=== PATIENT | female | born 1965 | race African-American/Black ===

== ENCOUNTER 2017-04-16 10:11 | Outpatient (CLI) | payer OTHER ==
--- NOTE | 2017-04-16 11:43 | RAD ---
TWO VIEWS CHEST: Date: 04-16-17 Comparison: 09-22-09 History: Dyspnea. FINDINGS: Calcified node is noted in the AP window. No pneumothorax, pleural fluid, focal consolidation, or edin eolar edema. Heart and mediastinal contours are stable. There is a focal area of high density in the epigastric region on frontal imaging, which may represent nonspecific calcification and/or high densi ty material within the bowel. IMPRESSION: No acute findings. POS: [facility]
== END 2017-04-16 10:12 | disposition home or self-care (01) ==
LOC: RAD 10:11
PROVIDERS: ATTEND Internal Medicine Pulmonary Disease
DX: R06.00 Dyspnea, unspecified (principal)
CPT/HCPCS: 71020

== ENCOUNTER 2017-04-16 10:37 | Outpatient (CLI) | payer OTHER | END 2017-04-16 10:38 | disposition home or self-care (01) | LOC: DTY/OP 10:37 | PROVIDERS: ATTEND Surgery | DX: E11.9 Type 2 diabetes mellitus without complications (principal); G47.30 Sleep apnea, unspecified; I10 Essential (primary) hypertension | CPT/HCPCS: 71020; 97802 ==

== ENCOUNTER 2017-06-08 19:30 | Outpatient (CLI) | payer OTHER | END 2017-06-08 19:31 | disposition home or self-care (01) | LOC: SLEEPLAB 19:30 | PROVIDERS: ATTEND Internal Medicine Pulmonary Disease | DX: G47.33 Obstructive sleep apnea (adult) (pediatric) (principal); I10 Essential (primary) hypertension | CPT/HCPCS: 95811 ==

== ENCOUNTER 2018-01-24 10:15 | Inpatient (IN) | payer OTHER ==
[2018-02-05] MEDS ORDERED: Heparin 5,000 UNITS/ML VIAL ONE (09:52)
[2018-02-05] MEDS ORDERED: CEFAZOLIN/Water 2 GM/20 ML SYRINGE ONE (09:52)
[2018-02-05] MEDS ORDERED: Fentanyl 100 MCG/2 ML VIAL ONE ×3 (12:24→15:48)
[2018-02-05] MEDS ORDERED: Bupivacaine/Epinephrine 0.25% 30 ML VIAL ONE ×2 (12:33→13:52)
[2018-02-05] MEDS ORDERED: SUGAMMADEX SODIUM 500 MG/5 ML VIAL ONE (14:17)
[2018-02-05] MEDS ORDERED: Ondansetron HCl/PF 4 MG/2 ML Vial IVP PRN ×2 (14:35→16:51)
[2018-02-05] MEDS ORDERED: Meperidine HCl/PF 25 MG/ML VIAL SLOW IVP PRN (14:35)
[2018-02-05] MEDS ORDERED: Promethazine HCl 25 MG/ML VIAL SLOW IVP PRN (14:35)
[2018-02-05] MEDS ORDERED: Promethazine HCl 25 MG/ML VIAL IM PRN ×2 (14:35→16:51)
[2018-02-05] MEDS ORDERED: diphenhydrAMINE 50 MG/ML VIAL IVP PRN ×2 (15:02→16:51)
[2018-02-05] MEDS ORDERED: Naloxone HCl 0.4 mg/ml Vial IV PRN (15:02)
[2018-02-05] MEDS ORDERED: Zolpidem Tartrate 5 MG TAB PO PRN (15:02)
[2018-02-05] MEDS ORDERED: diphenhydrAMINE 25 MG CAP PO PRN (15:02)
[2018-02-05] MEDS ORDERED: diphenhydrAMINE 50 MG/ML VIAL IM PRN (15:02)
[2018-02-05] MEDS ORDERED: Morphine CADD 1 MG/ML CADD IVPB PRN (15:02)
[2018-02-05] MEDS ORDERED: Communication Order-Pharmacy FS SCH (15:15)
[2018-02-05] MEDS ORDERED: Ondansetron HCl/PF 4 MG/2 ML Vial ONE (15:23)
[2018-02-05] MEDS ORDERED: Ketorolac Tromethamine 30 MG/ML VIAL ONE (15:23)
[2018-02-05] MEDS ORDERED: PROPOFOL 200 MG/20 ML VIAL ONE (15:23)
[2018-02-05] MEDS ORDERED: Dexamethasone 20 MG/5 ML VIAL ONE (15:23)
[2018-02-05] MEDS ORDERED: ePHEDrine/0.9% NaCl/PF SYRINGE 50 mg/10 ml ONE (15:23)
[2018-02-05] MEDS ORDERED: Glycopyrrolate 0.2 MG/ML 5 ML SYRINGE ONE (15:23)
[2018-02-05] MEDS ORDERED: Succinylcholine Chloride 20 MG/ML 10 ml SYRINGE FS ONE (15:23)
[2018-02-05] MEDS ORDERED: Lidocaine 1% PF 5 ML VIAL ONE (15:23)
[2018-02-05] MEDS ORDERED: hydrALAZINE 20 MG/ML VIAL SLOW IVP PRN (16:51)
[2018-02-05] MEDS ORDERED: HumaLOG 300 UNITS/3 ML VIAL SC PRN (16:51)
[2018-02-05] MEDS ORDERED: PROVENTIL INHALER 6.7 G (200 INHALATIONS) INH PRN (16:51)
[2018-02-05] MEDS ORDERED: Dextrose 50% Abboject 50 ML SYRINGE SLOW IVP PRN (16:51)
[2018-02-05] MEDS ORDERED: Dextrose 5% in Water 1,000 ML IV PRN (16:51)
[2018-02-05] MEDS: Acetaminophen 1,000 MG in Premix Bag 1 BAG IVPB SCH (17:52)
[2018-02-05] MEDS: Ondansetron HCl/PF 4 MG/2 ML Vial IVP PRN (18:47)
[2018-02-05 18:53] VITALS: BMI 66.2
[2018-02-05] MEDS: Enoxaparin Sodium 40 MG/0.4 ML SYRINGE SC SCH (21:30)
[2018-02-05] MEDS: Promethazine HCl 25 MG/ML VIAL IM PRN (21:31)
[2018-02-05] MEDS: NIFEdipine XL 60 MG TAB PO SCH (21:33)
[2018-02-05] MEDS: D5 1/2 NS w/20 mEq KCL 1,000 ML IV SCH (21:33)
[2018-02-06] MEDS: Acetaminophen 1,000 MG in Premix Bag 1 BAG IVPB SCH ×3 (00:43→11:21)
[2018-02-06] MEDS: D5 1/2 NS w/20 mEq KCL 1,000 ML IV SCH ×3 (00:43→10:32)
[2018-02-06] MEDS: Ondansetron HCl/PF 4 MG/2 ML Vial IVP PRN ×3 (01:30→20:43)
[2018-02-06] MEDS: Promethazine HCl 25 MG/ML VIAL IM PRN (05:51)
[2018-02-06 06:06] LABS: #Lymphocytes 1.2 thou/uL (1.20-3.40); #Monocytes 0.7 thou/uL (0.11-0.59); #Neutrophils 10.7 thou/uL (1.40-6.50); %Eosinophils 0.1 % (0.0-10.0); %Lymphocytes 9.6 % (21.0-51.0); %Monocytes 5.8 % (0.0-10.0); %Neutrophils 84.5 % (42.0-75.0); Hemoglobin 12.4 g/dL (12.0-16.0); Mean Corpuscular HGB CONC 31.3 g/dL (32.0-36.0); Mean Corpuscular Volume 89.4 fL (78.0-98.0); Mean Platelet Volume 7.1 fL (7.4-10.4); Platelet Count 417 thou/uL (130-400); RBC Distribution Width 12.9 % (11.5-14.5); Red Blood Cell (RBC) Count 4.42 mill/uL (4.20-5.40); White Blood Cell (WBC) Count 12.6 thou/uL (4.8-10.8)
[2018-02-06 06:28] LABS: Anion Gap 12 mmol/L (10-20); BUN (Urea Nitrogen) 8 mg/dL (9.8-20.1); Calc. Creatinine Clearance 178 mL/min (70-130); Calcium 9.4 mg/dL (7.8-10.44); Carbon Dioxide 30 mmol/L (22-29); Chloride 99 mmol/L (98-107); Estimated GFR-MDRD 67; Glucose 158 mg/dL (70-105); Potassium 3.7 mmol/L (3.5-5.1); Sodium 137 mmol/L (136-145)
[2018-02-06] MEDS: Pantoprazole 40 MG VIAL IVP SCH (08:12)
--- NOTE | 2018-02-06 14:44 | PRG ---
DATE OF SERVICE: 02/06/2018 Postop day #1, sleeve hiatal hernia repair. Ms. Sotomayor has nausea this morning. She is complainin g of bloating. She has not been ambulatory much. PHYSICAL EXAMINATION: Her abdomen is soft, nontender, nondistended. All incisions are healing well. She is afebrile. Vital signs are stable. ASSESSMENT: Postop day #1 laparoscopic gastric sleeve and hiatal hernia repair. PLAN: Continue clear liquids, keep IV fluids running. She is slow to move. She will probably stay today and go home tomorrow.
[2018-02-06] MEDS: Hydrocodone-Acetamin 15 ML UDCUP PO PRN ×2 (16:22→21:59)
[2018-02-06] MEDS: NIFEdipine XL 60 MG TAB PO SCH ×2 (20:55→22:03)
[2018-02-06] MEDS: Enoxaparin Sodium 40 MG/0.4 ML SYRINGE SC SCH (20:55)
--- NOTE | 2018-02-06 20:55 | OP ---
DATE OF PROCEDURE: 02/05/2018 PREOPERATIVE DIAGNOSES: 1. Morbid obesity with a body mass index of 68. 2. Diabetes mellitus. 3. Hypertension. POSTOPERATIVE DIAGNOSES: 1. Morbid obesity with a body mass index of 68. 2. Diabetes mellitus. 3. Hypertension. 4. Paraesophageal hiatal hernia. PROCEDURES PERFORMED: 1. Laparoscopic sleeve gastrectomy with [place] staple line reinforcements and 38-[place] bougie. 2. Laparoscopic hiatal hernia repair without mesh or fundoplication. 3. EGD. SURGEON: Russ Sullivan M.D. ANESTHESIA: General. ESTIMATED BLOOD LOSS: Minimal. COMPLICATIONS: None. SPECIMEN: None. FINDINGS: Hiatal hernia, moderate size. TECHNIQUE: The patient was taken to the operating room and placed supine on the table. After genera l anesthetic was obtained, the abdomen was prepped and draped in a sterile fashion. Her arms and leg s had been double strapped to bariatric table. Left subcostal 5-mm Optiview trocar was placed in the usual fashion and high-flow pneumoperitoneum was obtained. Left and right abdominal 12 mm ports and right subcostal 5 mm port were placed under direct visualization. A 5 mm incision was made in the x iphoid and Blaire was used to raise the liver off the GE junction. Short gastrics were taken down from mid body of stomach to left chalino of the diaphragm using LigaSure. Left chalino, posterior fundus, angle of His were completely dissected exposing hiatal hernia. The stomach was flipped over and the gastrohepatic ligament was entered to expose the right chalino of the diaphragm. A circumferential dis section of the esophagus was performed. The fundus was brought back down into the abdominal cavity. There was a moderate size hiatal hernia present. Short gastrics were taken down to a distance of 5 cm proximal to the pylorus. A 38 bougie was brought and its tip left in the antrum of the stomach. Multiple loads of an [place] stapling device were used to form the sleeve. The first is a green load fired up towards the incisura. Multiple loads were then fired up along the bougie, stomach was comp letely transected at the angle of His. The stomach was removed from the left abdominal incision. Th is fascial defect was closed using GraNee needle 0 Vicryl tie. No bleeding on the staple line. Two Ethibond sutures with the tie knot system were used to close the diaphragmatic defect posteriorly. C are was taken to avoid making it too tight. The bougie was then removed. An EGD was passed from the esophagus, stomach to the level of duodenum without obstruction. There was no stricture at the inci dontae. There was no air leakage or bleeding along the staple line. EGD scope was used to decompress the stomach, it was pulled and removed. All port sites were infiltrated using local anesthetic. All ports were removed under camera visualization. Pneumoperitoneum was let down. Vicryl was used to c lose the fascial defect from left abdominal incision. All incisions were irrigated and closed using 4-0 Monocryl and Dermabond. The patient was en route to recovery in stable condition. All instrumen t counts, needle counts and lap counts were correct.
[2018-02-07] MEDS: D5 1/2 NS w/20 mEq KCL 1,000 ML IV SCH ×2 (02:22→05:43)
[2018-02-07] MEDS: Hydrocodone-Acetamin 15 ML UDCUP PO PRN ×2 (05:30→11:31)
[2018-02-07] MEDS: Pantoprazole 40 MG VIAL IVP SCH (08:54)
--- NOTE | 2018-02-07 12:32 | DIS ---
DATE OF ADMISSION: 02/05/2018 DATE OF DISCHARGE: 02/07/2018 ADMIT DIAGNOSIS: Morbid obesity. DISCHARGE DIAGNOSIS: Morbid obesity. PROCEDURES: Sleeve gastrectomy by Dr. Sullivan without complication. CONDITION AT DISCHARGE: Improved. STAFF: Dr. Russ Sullivan. HOSPITAL COURSE: See hospital chart for details of hospitalization. On postop day 2, the patient is doing well. Her nausea is much improved. She is more ambulatory. Her pain is controlled. She is discharged home.
[2018-02-07 15:31] VITALS: BP 144/89; TEMP 98
== END 2018-02-07 15:31 | disposition home or self-care (01) | DRG 621 ==
LOC: SURG A 02-05 08:32
PROVIDERS: ADMIT Surgery; ATTEND Surgery
PROC: 0DB64Z3 Excision of Stomach, Percutaneous Endoscopic Approach, Vertical (ICD-10-PCS; principal; 2018-02-05)
PROC: 0BQT4ZZ Repair Diaphragm, Percutaneous Endoscopic Approach (ICD-10-PCS; 2018-02-05)
DX: E66.01 Morbid (severe) obesity due to excess calories (principal); Z68.44 Body mass index [BMI] 60.0-69.9, adult; K44.9 Diaphragmatic hernia without obstruction or gangrene; E11.9 Type 2 diabetes mellitus without complications; I10 Essential (primary) hypertension; Z88.8 Allergy status to other drugs, medicaments and biological substances
CPT/HCPCS: 36415; 36416; 80048; 85025; 88307; 88312; 94760; C9113; J0131; J1100; J1644; J1650; J1885; J2001; J2274; J2405; J2550; J2704; J3010

== ENCOUNTER 2018-01-24 10:33 | Outpatient (CLI) | payer OTHER ==
[2018-01-24 13:15] LABS: #Eosinphils 0.3 thou/uL (0.0-0.7); #Lymphocytes 1.7 thou/uL (1.20-3.40); #Monocytes 0.5 thou/uL (0.11-0.59); #Neutrophils 6.4 thou/uL (1.40-6.50); %Basophils 0.4 % (0.0-1.0); %Eosinophils 2.9 % (0.0-10.0); %Lymphocytes 19.2 % (21.0-51.0); %Monocytes 5.9 % (0.0-10.0); %Neutrophils 71.6 % (42.0-75.0); Hemoglobin 13.1 g/dL (12.0-16.0); Mean Corpuscular HGB CONC 32.3 g/dL (32.0-36.0); Mean Corpuscular Hemoglobin 28.4 pg (27.0-31.0); Mean Corpuscular Volume 87.8 fL (78.0-98.0); Mean Platelet Volume 6.8 fL (7.4-10.4); Platelet Count 382 thou/uL (130-400); RBC Distribution Width 13.1 % (11.5-14.5); Red Blood Cell (RBC) Count 4.63 mill/uL (4.20-5.40); White Blood Cell (WBC) Count 8.9 thou/uL (4.8-10.8)
[2018-01-24 13:27] LABS: ALT (SGPT) 11 U/L (8-55); AST (SGOT) 17 U/L (5-34); Albumin 4.4 g/dL (3.5-5.0); Alkaline Phosphatase 81 U/L (40-150); Anion Gap 14 mmol/L (10-20); BUN (Urea Nitrogen) 16 mg/dL (9.8-20.1); Bilirubin, Direct 0.2 mg/dL (0.1-0.3); Bilirubin, Total 0.5 mg/dL (0.2-1.2); Calc. Creatinine Clearance 0 mL/min (70-130); Calcium 10.2 mg/dL (7.8-10.44); Carbon Dioxide 28 mmol/L (22-29); Chloride 100 mmol/L (98-107); Estimated GFR-MDRD 64; Globulin 3.9 g/dL (2.4-3.5); Glucose 99 mg/dL (70-105); Potassium 3.6 mmol/L (3.5-5.1); Protein, Total 8.3 g/dL (6.0-8.3); Sodium 138 mmol/L (136-145)
--- NOTE | 2018-01-24 13:50 | RAD ---
CHEST TWO VIEWS: HISTORY: Preoperative radiograph. COMPARISON: 09/22/2009 FINDINGS: Two views of the chest show normal sized cardiomediastinal silhouette. There is no evidence of consol idation, mass, or pleural effusion. The bones are unremarkable. IMPRESSION: No evidence of acute cardiopulmonary disease. POS: [facility]
--- NOTE | 2018-01-27 10:10 | EKG ---
Test Reason : Blood Pressure : / mmHG Vent. Rate : 066 BPM Atrial Rate : 066 BPM P-R Int : 206 ms QRS Dur : 098 ms QT Int : 400 ms P-R-T Axes : 069 -67 028 degrees QTc Int : 419 ms Normal sinus rhythm Left axis deviation Possible Anterior infarct , age undetermined Abnormal ECG When compared with ECG of 07-DEC-2009 10:43, Nonspecific T wave abnormality no longer evident in Lateral leads Confirmed by DR. Erika BARBER ([id number]) on 01/27/2018 10:10:27 AM Referred By: [facility] Confirmed By:DR. Erika BARBER
== END 2018-01-24 10:34 | disposition home or self-care (01) ==
LOC: LABBT 10:33
PROVIDERS: ATTEND Surgery
DX: Z01.818 Encounter for other preprocedural examination (principal); E66.01 Morbid (severe) obesity due to excess calories
CPT/HCPCS: 71046; 80053; 80076; 83036; 85025; 93005; 93010

== ENCOUNTER 2018-07-04 01:30 | Outpatient (CLI) | payer OTHER ==
[2018-07-04 13:07] LABS: #Eosinphils 0.2 thou/uL (0.0-0.7); #Monocytes 0.5 thou/uL (0.11-0.59); #Neutrophils 4.2 thou/uL (1.40-6.50); %Basophils 0.6 % (0.0-1.0); %Eosinophils 3.4 % (0.0-10.0); %Lymphocytes 28.2 % (21.0-51.0); %Monocytes 7.6 % (0.0-10.0); %Neutrophils 60.2 % (42.0-75.0); Mean Corpuscular HGB CONC 31.8 g/dL (32.0-36.0); Mean Corpuscular Hemoglobin 29.5 pg (27.0-31.0); Mean Corpuscular Volume 92.6 fL (78.0-98.0); Mean Platelet Volume 7.3 fL (7.4-10.4); Platelet Count 345 thou/uL (130-400); RBC Distribution Width 12.4 % (11.5-14.5)
[2018-07-04 13:29] LABS: Anion Gap 12 mmol/L (10-20); BUN (Urea Nitrogen) 15 mg/dL (9.8-20.1); Calc. Creatinine Clearance 0 mL/min (70-130); Calcium 10.3 mg/dL (7.8-10.44); Carbon Dioxide 30 mmol/L (22-29); Chloride 105 mmol/L (98-107); Estimated GFR-MDRD 66; Glucose 86 mg/dL (70-105); Potassium 3.5 mmol/L (3.5-5.1); Sodium 143 mmol/L (136-145)
== END 2018-07-04 01:31 | disposition home or self-care (01) ==
LOC: LABBT 01:30
PROVIDERS: ATTEND Surgery
DX: Z01.812 Encounter for preprocedural laboratory examination (principal); K43.2 Incisional hernia without obstruction or gangrene
CPT/HCPCS: 80048; 85025

== ENCOUNTER 2018-07-07 09:13 | Observation (INO) | payer OTHER ==
[2018-07-07] MEDS ORDERED: Bupivacaine 0.25% HCL 30 ML VIAL ONE (11:13)
[2018-07-07] MEDS ORDERED: Bupivacaine HCl 0.5%/Epinephrine 1:200,000/PF 30 ml Vial ONE (11:18)
[2018-07-07] MEDS ORDERED: Ondansetron PF 4 MG/2 ML Vial ONE (11:43)
[2018-07-07] MEDS ORDERED: Lidocaine 1% PF 5 ML VIAL ONE (11:43)
[2018-07-07] MEDS ORDERED: ePHEDrine 50 MG/ML VIAL ONE (11:43)
[2018-07-07] MEDS ORDERED: Glycopyrrolate 0.2 MG/ML 5 ML SYRINGE ONE (11:43)
[2018-07-07] MEDS ORDERED: PROPOFOL 200 MG/20 ML VIAL ONE (11:43)
[2018-07-07] MEDS ORDERED: Rocuronium Bromide 10 MG/ML (10ML VIAL) ONE (11:43)
[2018-07-07] MEDS ORDERED: Dexamethasone 20 MG/5 ML VIAL ONE (11:43)
[2018-07-07] MEDS ORDERED: Fentanyl 250 MCG/5 ML VIAL ONE (11:55)
[2018-07-07] MEDS ORDERED: Fentanyl 100 MCG/2 ML VIAL ONE ×3 (12:02→14:14)
[2018-07-07] MEDS ORDERED: Promethazine HCl 25 MG/ML VIAL IM PRN (13:56)
[2018-07-07] MEDS ORDERED: Ondansetron PF 4 MG/2 ML Vial IVP PRN (13:56)
[2018-07-07] MEDS ORDERED: HumaLOG 300 UNITS/3 ML VIAL SC PRN (13:56)
[2018-07-07] MEDS ORDERED: Dextrose 5% in Water 1,000 ML IV PRN (13:56)
[2018-07-07] MEDS ORDERED: Dextrose 50% Abboject 50 ML SYRINGE SLOW IVP PRN (13:56)
[2018-07-07] MEDS ORDERED: Morphine 4 MG/ML VIAL SLOW IVP PRN (13:56)
[2018-07-07] MEDS ORDERED: hydrALAZINE 20 MG/ML VIAL SLOW IVP PRN (13:56)
[2018-07-07] MEDS ORDERED: HYDROcodone/Acetaminophen 10/325 mg Tablet PO PRN (13:56)
[2018-07-07] MEDS ORDERED: PROVENTIL INHALER 6.7 G (200 INHALATIONS) INH PRN (13:56)
[2018-07-07] MEDS ORDERED: Promethazine HCl 25 MG/ML VIAL ONE (14:04)
[2018-07-07 15:07] VITALS: BMI 56.5
[2018-07-07] MEDS: Sodium Chloride 0.9% 1,000 ML IV SCH (16:03)
[2018-07-07] MEDS: Morphine 4 MG/ML VIAL SLOW IVP PRN ×2 (16:04→19:26)
[2018-07-07] MEDS: Enoxaparin Sodium 40 MG/0.4 ML SYRINGE SC SCH (20:27)
[2018-07-07] MEDS: Famotidine 20 MG TAB PO SCH (20:28)
[2018-07-07] MEDS: Famotidine/PF 20 mg/2ml Vial SLOW IVP SCH (20:28)
[2018-07-07] MEDS: HYDROcodone/Acetaminophen 10/325 mg Tablet PO PRN (20:29)
[2018-07-07] MEDS ORDERED: TRIAMTERENE 25 MG PO SCH (21:00)
[2018-07-07] MEDS: NIFEdipine XL 60 MG TAB PO SCH (21:53)
[2018-07-07] MEDS ORDERED: Calcium Carbonate 500 MG ChewTAB PO PRN ×2 (22:24→22:25)
[2018-07-08] MEDS: Morphine 4 MG/ML VIAL SLOW IVP PRN (03:41)
[2018-07-08] MEDS: HYDROcodone/Acetaminophen 10/325 mg Tablet PO PRN ×3 (06:20→18:17)
[2018-07-08] MEDS: Sodium Chloride 0.9% 1,000 ML IV SCH ×2 (06:26→17:26)
[2018-07-08] MEDS: Famotidine 20 MG TAB PO SCH ×2 (08:21→21:19)
[2018-07-08] MEDS: Pantoprazole 40 MG GRANULES PACKET PO SCH (08:21)
[2018-07-08] MEDS: Multivitamin W/ Minerals 1 TAB PO SCH (08:21)
[2018-07-08] MEDS: Famotidine/PF 20 mg/2ml Vial SLOW IVP SCH ×2 (08:23→21:19)
[2018-07-08] MEDS ORDERED: CALCIUM CITRATE 500 MG PO SCH (09:00)
[2018-07-08] MEDS: NIFEdipine XL 60 MG TAB PO SCH (21:18)
[2018-07-08] MEDS: Enoxaparin Sodium 40 MG/0.4 ML SYRINGE SC SCH (21:19)
[2018-07-09] MEDS: HYDROcodone/Acetaminophen 10/325 mg Tablet PO PRN (03:23)
--- NOTE | 2018-07-09 09:25 | DIS ---
DATE OF ADMISSION: 07/07/2018 DATE OF DISCHARGE: 07/09/2018 ADMISSION DIAGNOSIS: Incisional hernia, morbid obesity. DISCHARGE DIAGNOSIS: Incisional hernia, morbid obesity. PROCEDURE PERFORMED: Da Kendall laparoscopic hernia repair with mesh by Dr. Sullivan without complication. CONDITION ON DISCHARGE: Improved. SURGEON: Russ Sullivan MD HOSPITAL COURSE: On postop day one, patient was still having pain. On postop day two, she was doing well, ambulatory. She was discharged home. Prescription sent to her pharmacy in [place]. She will follow up with me in 2 weeks. Diet and activity as tolerated. Job ID: [id number]
[2018-07-09] MEDS: Famotidine 20 MG TAB PO SCH (09:41)
[2018-07-09] MEDS: Multivitamin W/ Minerals 1 TAB PO SCH (09:41)
[2018-07-09] MEDS: Pantoprazole 40 MG GRANULES PACKET PO SCH (09:44)
[2018-07-09] MEDS: Famotidine/PF 20 mg/2ml Vial SLOW IVP SCH (09:44)
[2018-07-09] MEDS: Sodium Chloride 0.9% 1,000 ML IV SCH (09:44)
[2018-07-09 16:26] VITALS: BP 129/83; TEMP 97.8
--- NOTE | 2018-07-10 14:45 | OP ---
DATE OF PROCEDURE: 07/07/2018 PREOPERATIVE DIAGNOSIS: Incisional hernia. POSTOPERATIVE DIAGNOSES: Incisional hernia. PROCEDURE PERFORMED: Da Kendall laparoscopic incisional hernia repair with mesh, Ventralex 8 x 10 cm. ANESTHESIA: General. ESTIMATED BLOOD LOSS: Minimal. COMPLICATIONS: None. SPECIMENS: None. DESCRIPTION OF PROCEDURE: The patient was taken to the operating room and laid supine on the operating room table. After general anesthetic was obtained, a Hansen was placed. The abdomen was shaved and draped in a sterile fashion. Left subcostal 5 mm Optiview trocar was placed in usual fashion, and high-flow pneumoperitoneum was obtained. Left and right abdominal 8 mm robot assist trocars were placed. The 5 mm subcostal port was switched out to a 12 mm port. All ports were docked to the robot. Surgeon goes to the console. All posterior abdominal wall adhesions were taken down. The patient had some transverse colon in the hernia defect. This was gently dissected out without injury. The falciform was taken down proximally. The posterior peritoneum was taken down to expose the posterior fascia around the hernia defect. There were 2 hernia defects right next to each other. These were closed using running #1 V-Loc suture. 8 x 10 cm mesh was marked on its nonadherent side placed in the abdominal cavity. The exposed mesh side was placed against the posterior abdominal wall in the area of the repair and held in place using the #1 V-Loc needle. 2-0 V-Loc was then used to sew the edges of the mesh to the posterior fascia circumferentially. All needles were removed from the abdomen and accounted for. There was no injury to any intraabdominal structures. All port sites were infiltrated using local anesthetic. The 12 mm trocar site closed using GraNee needle and Vicryl tie. All port sites were infiltrated using local anesthetic and removed under direct visualization without bleeding. Pneumoperitoneum was let down. Vicryl ties tied down. All incisions were closed using 4-0 Monocryl and Dermabond. The patient was sent to Recovery in stable condition. All instrument counts, needle counts, and lap counts are correct. Job ID: [id number]
== END 2018-07-09 16:40 | disposition home or self-care (01) ==
LOC: SDC 09:13 → INTOOBSV 14:00 → SURG B 14:00
PROVIDERS: ADMIT Surgery; ATTEND Surgery
PROC: 0WUF4JZ Supplement Abdominal Wall with Synthetic Substitute, Percutaneous Endoscopic Approach (ICD-10-PCS; principal; 2018-07-09)
PROC: 8E0W4CZ Robotic Assisted Procedure of Trunk Region, Percutaneous Endoscopic Approach (ICD-10-PCS; 2018-07-09)
DX: K43.2 Incisional hernia without obstruction or gangrene (principal); I10 Essential (primary) hypertension; E11.9 Type 2 diabetes mellitus without complications; E66.01 Morbid (severe) obesity due to excess calories; Z68.43 Body mass index [BMI] 50.0-59.9, adult; Z79.82 Long term (current) use of aspirin; Z79.899 Other long term (current) drug therapy
CPT/HCPCS: 36416; 96361; 96372; 96374; 96375; 96376; G0378; J0670; J1100; J1650; J2001; J2270; J2405; J2550; J2704; J3010; J3490; S0020

== ENCOUNTER 2019-06-17 19:09 | Observation (INO) | payer OTHER ==
[2019-06-17 19:32] LABS: #Basophils 0.1 thou/uL (0.0-0.2); #Eosinphils 0.7 thou/uL (0.0-0.7); #Lymphocytes 2.9 thou/uL (1.20-3.40); #Monocytes 0.7 thou/uL (0.11-0.59); #Neutrophils 3.6 thou/uL (1.40-6.50); %Basophils 1.7 % (0.0-1.0); %Eosinophils 8.6 % (0.0-10.0); %Lymphocytes 35.8 % (21.0-51.0); %Monocytes 9.1 % (0.0-10.0); %Neutrophils 44.8 % (42.0-75.0); Hemoglobin 13.6 g/dL (12.0-16.0); Mean Corpuscular HGB CONC 32.3 g/dL (32.0-36.0); Mean Corpuscular Hemoglobin 29.9 pg (27.0-31.0); Mean Corpuscular Volume 92.5 fL (78.0-98.0); Platelet Count 349 thou/uL (130-400); RBC Distribution Width 11.8 % (11.5-14.5); Red Blood Cell (RBC) Count 4.56 mill/uL (4.20-5.40)
--- NOTE | 2019-06-17 19:42 | RAD ---
XR Chest Pa Lat STANDARD History: Chest pain Comparison: Radiograph 2018 Findings: Lungs are clear. No pneumothorax or effusion. Cardiac silhouette and mediastinal contours a re similar. Calcified mediastinal lymph nodes. Sclerosis of the left humeral neck may be sequelae of old injury. Impression: Evidence of prior granulomatous disease. No acute intrathoracic abnormality.
[2019-06-17 19:52] LABS: ALT (SGPT) 11 U/L (8-55); AST (SGOT) 15 U/L (5-34); Alkaline Phosphatase 89 U/L (40-110); Anion Gap 11 mmol/L (10-20); BUN (Urea Nitrogen) 15 mg/dL (9.8-20.1); Bilirubin, Total 0.3 mg/dL (0.2-1.2); Calc. Creatinine Clearance 0 mL/min (70-130); Calcium 9.9 mg/dL (7.8-10.44); Carbon Dioxide 30 mmol/L (22-29); Chloride 104 mmol/L (98-107); Estimated GFR-MDRD 83; Globulin 3.1 g/dL (2.4-3.5); Glucose 85 mg/dL (70-105); Potassium 4.1 mmol/L (3.5-5.1); Protein, Total 7.1 g/dL (6.0-8.3); Sodium 141 mmol/L (136-145)
[2019-06-17 20:02] LABS: Bilirubin Negative (Negative); Blood, Urine Negative (Negative); Clarity Clear (Clear); Glucose, Urine (Dipstick) Normal (Negative); Leukocyte Negative Leu/uL (Negative); Nitrite Negative (Negative); Protein, Urine (Dipstick) Negative (Neg-Trace); Urobilinogen Normal mg/dL (Less than 2)
[2019-06-17] MEDS ORDERED: Ondansetron ODT 4 MG TAB ONE (20:15)
--- NOTE | 2019-06-17 20:58 | CT ---
CT Brain WO Con History: Dizziness Comparison: None Findings: No acute hemorrhage or infarct. No midline shift or mass effect. Ventricular size and extra -axial CSF spaces are normal. Clivus is intact. 1.1 cm lytic of the right temporal bone just above the mastoids and partially invol ving the superior mastoid air cells extending from the inner to the outer table with well-defined margins. Impression: 1. No acute intracranial abnormality. 2. Lytic process of the right temporal bone involving the superior margin of the mastoids with an AP dimension of 1.1 cm extending from the inner to the outer table. Given its well-defined margins it is possible this can reflect a venous venous adair given that it appears to communicate with the trans verse sinus. Nonemergent follow-up MRI with and without contrast recommended.
--- NOTE | 2019-06-17 22:09 | PDOC.EVN ---
Event Note - Event Note Event Note: [id number] HP
[2019-06-17 23:33] VITALS: BMI 53.1
[2019-06-18] MEDS: Sodium Chloride 0.9% 1,000 ML IV SCH ×2 (00:15→16:08)
--- NOTE | 2019-06-18 02:14 | HP ---
CHIEF COMPLAINT: Right-sided numbness. HISTORY OF PRESENT ILLNESS: Ms. Sotomayor is a 54-year-old female with past medical history of hypertension, CVA, obesity, presented to the emergency room for evaluation of right-sided numbness and dizziness. As per patient, not been feeling well today. She started feeling dizzy and having decreased sensation and numbness of the right side, it started around 1:00 p.m. Denies any loss of consciousness, but she felt that she is going to almost pass out, called EMS, who told her to take 324 mg of aspirin. Initial workup in the emergency room including CT of the brain, no acute finding. The patient is being admitted to hospital for further management. PAST MEDICAL HISTORY: 1. CVA x3. 2. Heart murmur. 3. Hypertension. PAST SURGICAL HISTORY: 1. Bariatric surgery. 2. Hernia removal. PAST PSYCHIATRIC HISTORY: Anxiety. FAMILY HISTORY: Reviewed and noncontributory. SOCIAL HISTORY: Denies smoking, alcohol drinking, or drug abuse. HOME MEDICATIONS: Please see home medication reconciliation form for updated medications. ALLERGIES: ALLERGIC TO POVIDONE-IODINE, SEAFOODS, SOAP, SULFA. REVIEW OF SYSTEMS: Review of 14 systems negative except what is mentioned in the history of present illness. PHYSICAL EXAMINATION: GENERAL: The patient is awake, alert, does not appear to be in acute distress. VITAL SIGNS: Blood pressure on presentation 174/105, latest blood pressure 153/80, pulse is 61, respiratory rate is 16, pulse oximetry is 99% on room air. HEAD: Normocephalic, atraumatic. NECK: Supple. No JVD. CHEST: Fair bilateral air entry. HEART: S1, S2, regular. ABDOMEN: Soft, nontender. Bowel sounds present. NEUROLOGIC: Awake, alert, oriented x3. Decreased sensation in the right upper and lower extremity comparing to the left. PSYCHIATRIC: Unable to assess. EXTREMITIES: No clubbing or cyanosis. GENITOURINARY: No suprapubic tenderness. No flank tenderness. LABORATORY DATA: CT of the brain, no acute intracranial abnormality. Troponin less than 0.01. Electrolytes unremarkable. CBC unremarkable. ASSESSMENT: A 54-year-old female with history of cerebrovascular accident, hypertension, obesity, presenting with right-sided numbness and dizziness. 1. Transient ischemic attack/?cerebrovascular accident. 2. History of cerebrovascular accident. 3. Hypertension. 4. Morbid obesity with BMI more than 40. PLAN: 1. Admit. 2. Telemetry monitoring. 3. Frequent neuro checks. 4. Aspirin. 5. MRI of the brain. 6. 2D echo. 7. Reconcile home medications. 8. DVT prophylaxis as appropriate. 9. Expected length of stay at least 1 midnight if the patient is stable and further workup negative. Job ID: [id number]
[2019-06-18] MEDS ORDERED: Lorazepam 2 MG/ML VIAL SLOW IVP SCH ×2 (04:45)
[2019-06-18 05:29] LABS: Cardiac Risk 3.1 (Less than 4.5)
[2019-06-18] MEDS ORDERED: Acetaminophen 325 MG TAB PO PRN (05:54)
--- NOTE | 2019-06-18 08:46 | PDOC.HOSPP ---
- Subjective Encounter Date: 06/18/19 Encounter Time: 11:10 Subjective: Patient still with some numbness and possible weakness in RLE. RUE back to normal. Has chronic dizziness and unsteady on feet from what she describes as a previous stroke, though no old CVA on CT head. - Objective Vital Signs & Weight: Vital Signs (12 hours) Temp Pulse Resp BP Pulse Ox 06/18/19 07:43 97.7 F 59 L 16 134/70 99 06/18/19 03:21 97.8 F 60 16 145/70 H 93 L 06/17/19 22:45 98.0 F 63 20 146/89 H 98 Weight Weight 319 lb 6.4 oz I&O: 06/17/19 06/18/19 06/19/19 06:59 06:59 06:59 Intake Total 1136 Balance 1136 Result Diagrams: 06/17/19 19:24 06/17/19 19:24 Hospitalist ROS - Review of Systems Constitutional: denies: fever, chills Respiratory: denies: cough, shortness of breath Cardiovascular: denies: chest pain, palpitations Gastrointestinal: reports: nausea. denies: vomiting, abdominal pain - Medication Medications: Active Medications Generic Name Dose Route Start Last Admin Trade Name Freq PRN Reason Stop Dose Admin Acetaminophen 650 mg 06/18/19 05:54 06/18/19 06:04 Tylenol PO 650 mg Q6H PRN Administration Pain Sodium Chloride 1,000 mls @ 75 mls/hr 06/17/19 21:45 06/18/19 00:15 Normal Saline 0.9% IV 1,000 mls .[id number] SANNA Administration - Exam General Appearance: NAD, awake alert General - other findings: morbidly obese ENT: moist mucosa Heart: RRR, no murmur, no gallops, no rubs Respiratory: CTAB, no wheezes, no rales, no ronchi Gastrointestinal: soft, non-tender, non-distended, normal bowel sounds Neurological: cranial nerve grossly intact Musculoskeletal: normal tone, normal strength Psychiatric: normal affect, normal behavior, A&O x 3 Hosp A/P (1) Right sided numbness Code(s): R20.0 - ANESTHESIA OF SKIN Status: Acute (2) Dizziness Code(s): R42 - DIZZINESS AND GIDDINESS Status: Acute (3) History of CVA (cerebrovascular accident) Code(s): Z86.73 - PRSNL HX OF TIA (TIA), AND CEREB INFRC W/O RESID DEFICITS Status: Chronic (4) HTN (hypertension) Code(s): I10 - ESSENTIAL (PRIMARY) HYPERTENSION Status: Chronic (5) Morbid obesity with BMI of 50.0-59.9, adult Code(s): E66.01 - MORBID (SEVERE) OBESITY DUE TO EXCESS CALORIES; Z68.43 - BODY MASS INDEX (BMI) 50.0-59.9, ADULT Status: Chronic (6) Abnormal x-ray of temporal bones Code(s): R93.7 - ABNORMAL FINDINGS ON DIAGNOSTIC IMAGING OF PRT MS SYS Status : Acute - Plan ASA, CT neg, MRI pending. Will need to have done at [facility]. Lytic process of right temporal bone on CT, likely venous adair, f/u MRI recommended
[2019-06-18] MEDS ORDERED: Heparin 5,000 UNITS/ML VIAL SC SCH (09:00)
[2019-06-18] MEDS ORDERED: Aspirin 325 mg Enteric Coated Tablet PO SCH (09:00)
[2019-06-18] MEDS ORDERED: PROVENTIL INHALER 6.7 G (200 INHALATIONS) INH PRN (11:49)
[2019-06-18 15:53] VITALS: BP 162/92; TEMP 97.6
[2019-06-18] MEDS ORDERED: NIFEdipine XL 60 MG TAB PO SCH (21:00)
[2019-06-18] MEDS ORDERED: Carvedilol 3.125 MG TAB PO SCH (21:00)
--- NOTE | 2019-06-19 03:20 | DIS ---
DATE OF ADMISSION: 06/17/2019 DATE OF DISCHARGE: 06/18/2019 PRIMARY CARE PHYSICIAN: Dr. Sahil Theodore. REASON FOR ADMISSION: Right-sided numbness, possible stroke. DIAGNOSES AT DISCHARGE: 1. Right-sided numbness, stroke ruled out. 2. Dizziness and lightheadedness, possibly medication effect. 3. History of cerebrovascular accident. 4. Hypertension. 5. Morbid obesity. 6. Abnormal x-ray of temporal bones. PROCEDURES PERFORMED: 1. CT of the brain without contrast showing no acute intracranial abnormalities, but there was a lytic process of the right temporal bone, 1.1 cm, possibly venous adair. 2. MRI of the brain showing no evidence of acute stroke. No abnormalities noted of the temporal bone. No tumors noted. 3. Echocardiogram results pending. CONSULTATIONS: None. SUMMARY OF HOSPITAL COURSE: This is a 54-year-old female with history of previous stroke, hypertension, obesity, who presented to the emergency room with right-sided numbness. She was also having some dizziness and lightheadedness when standing, that had been coming and going for some time now. She initially noticed sensation loss mostly in the right arm along with dizziness. However, when she was brought to the hospital, it moved down to the right leg and her arm was fine. The patient had a negative workup in the hospital. CT was negative except for the aforementioned temporal bone with recommendation for MRI. MRI was done, which showed no stroke and no abnormalities visualized in the temporal bone. The patient was still having a little bit of numbness of her right lower extremity, otherwise was back to baseline at time of discharge. I did decrease her nifedipine a little bit to see if maybe that was causing her some orthostatic symptoms and she is being discharged to follow up with her primary care doctor and with Neurology as an outpatient. DISCHARGE MANAGEMENT: Discharged home. FOLLOWUP: Follow up with Dr. Theodore in the next 7 days and with Neurology after that. ACTIVITY: As tolerated. DIET: Healthy heart diet. MEDICATIONS: 1. Nifedipine extended release 30 mg daily, 30 tablets dispensed. 2. Albuterol as needed. 3. Aspirin 81 mg daily. 4. Calcium citrate 500 mg daily. 5. Carvedilol 3.125 mg twice a day. 6. Multivitamin with iron daily. 7. Protonix 40 mg daily. 8. Potassium chloride 20 mEq daily. 9. Triamterene/hydrochlorothiazide 37.5/25 mg one tablet daily. Job ID: [id number]
[2019-06-19] MEDS ORDERED: Potassium Chloride 20 MEQ TAB PO SCH (08:00)
[2019-06-19] MEDS ORDERED: CALCIUM CITRATE 500 MG PO SCH (09:00)
[2019-06-19] MEDS ORDERED: Aspirin 81 mg Enteric Coated Tablet PO SCH (09:00)
[2019-06-19] MEDS ORDERED: Multivitamin W/ Minerals 1 TAB PO SCH (09:00)
[2019-06-19] MEDS ORDERED: Triamterene/Hydrochlorothiazide 37.5 mg/25 mg Tablet PO SCH (09:00)
[2019-06-19] MEDS ORDERED: Pantoprazole 40 MG GRANULES PACKET PO SCH (09:00)
== END 2019-06-18 18:27 | disposition home or self-care (01) ==
LOC: ERS 19:09 → 2SE 22:04
PROVIDERS: ADMIT Internal Medicine; ATTEND Internal Medicine
DX: R20.0 Anesthesia of skin (principal); R42 Dizziness and giddiness; R53.1 Weakness; I10 Essential (primary) hypertension; R93.7 Abnormal findings on diagnostic imaging of other parts of musculoskeletal system; F41.9 Anxiety disorder, unspecified; E66.01 Morbid (severe) obesity due to excess calories; Z68.43 Body mass index [BMI] 50.0-59.9, adult; Z86.73 Personal history of transient ischemic attack (TIA), and cerebral infarction without residual deficits; Z79.82 Long term (current) use of aspirin; Z79.899 Other long term (current) drug therapy; Z88.2 Allergy status to sulfonamides; Z88.8 Allergy status to other drugs, medicaments and biological substances; Z91.013 Allergy to seafood; Z98.84 Bariatric surgery status
CPT/HCPCS: 36415; 70450; 71046; 80053; 80061; 81003; 84443; 84484; 85025; 93005; 93306; 96361; 96372; 96374; G0378; J1644; J2060; Q0162

== ENCOUNTER 2019-10-26 09:19 | Outpatient (CLI) | payer OTHER ==
--- NOTE | 2019-10-26 11:04 | RAD ---
LEFT KNEE 3 VIEWS: Date: 10/26/2019 HISTORY: Chronic left knee pain. FINDINGS/IMPRESSION: There are degenerative changes in the medial and lateral tibiofemoral compartments manifested by oste ophyte formation and joint space narrowing. There are postop changes of metallic hardware in the visu alized portions of the shaft of the femur. No acute fracture, dislocation, or bony destruction is pretty ntified. POS: [facility]
== END 2019-10-26 09:20 | disposition home or self-care (01) ==
LOC: BICRAD 09:19
PROVIDERS: ATTEND Family Medicine
DX: M25.562 Pain in left knee (principal); G89.29 Other chronic pain; M17.12 Unilateral primary osteoarthritis, left knee; M25.762 Osteophyte, left knee; Z98.890 Other specified postprocedural states

== ENCOUNTER 2020-01-29 16:58 | Observation (INO) | payer OTHER ==
[2020-01-29] MEDS ORDERED: Fentanyl 100 MCG/2 ML VIAL ONE (17:44)
[2020-01-29] MEDS ORDERED: diphenhydrAMINE 50 MG/ML VIAL ONE (17:44)
[2020-01-29] MEDS ORDERED: Famotidine/PF 20 mg/2ml Vial ONE (17:44)
[2020-01-29] MEDS ORDERED: methylPREDNISolone Sod Succ 40 MG VIAL ONE (17:44)
[2020-01-29 17:48] LABS: #Eosinphils 0.3 thou/uL (0.0-0.7); #Monocytes 0.6 thou/uL (0.11-0.59); #Neutrophils 4.7 thou/uL (1.40-6.50); %Basophils 0.2 % (0.0-1.0); %Eosinophils 3.7 % (0.0-10.0); %Lymphocytes 26.4 % (21.0-51.0); %Monocytes 7.6 % (0.0-10.0); %Neutrophils 62.1 % (42.0-75.0); Hemoglobin 13.3 g/dL (12.0-16.0); Mean Corpuscular HGB CONC 30.2 g/dL (32.0-36.0); Mean Corpuscular Hemoglobin 28.3 pg (27.0-31.0); Mean Corpuscular Volume 93.9 fL (78.0-98.0); Platelet Count 358 thou/uL (130-400); RBC Distribution Width 12.1 % (11.5-14.5); Red Blood Cell (RBC) Count 4.69 mill/uL (4.20-5.40); White Blood Cell (WBC) Count 7.6 thou/uL (4.8-10.8)
--- NOTE | 2020-01-29 18:15 | RAD ---
ONE VIEW CHEST: 01/29/20 HISTORY: Chest pain, heart racing, heart palpitations and dizziness. COMPARISON: 04/16/17. FINDINGS: The cardiac silhouette is magnified by projection. Pulmonary vasculature is within normal limits. Nickolas gs are clear. Calcified left paramediastinal lymph node is again seen. Metallic clip overlies the le ft upper quadrant. Chest is stable compared to prior study. IMPRESSION: No acute cardiopulmonary process. POS: [facility]
[2020-01-29 18:30] LABS: ALT (SGPT) 11 U/L (8-55); AST (SGOT) 13 U/L (5-34); Albumin 4.1 g/dL (3.5-5.0); Alkaline Phosphatase 91 U/L (40-110); Anion Gap 14 mmol/L (10-20); BUN (Urea Nitrogen) 16 mg/dL (9.8-20.1); Bilirubin, Total 0.2 mg/dL (0.2-1.2); Calc. Creatinine Clearance 0 mL/min (70-130); Calcium 9.6 mg/dL (7.8-10.44); Carbon Dioxide 27 mmol/L (22-29); Chloride 105 mmol/L (98-107); Estimated GFR-MDRD 81; Globulin 3.1 g/dL (2.4-3.5); Glucose 102 mg/dL (70-105); Lipase 26 U/L (8-78); Potassium 3.7 mmol/L (3.5-5.1); Protein, Total 7.2 g/dL (6.0-8.3); Sodium 142 mmol/L (136-145)
[2020-01-29] MEDS ORDERED: Aspirin Chewable 81 MG TAB ONE (19:23)
[2020-01-29 19:36] LABS: Bilirubin Negative (Negative); Blood, Urine Negative (Negative); Clarity Clear (Clear); Glucose, Urine (Dipstick) Normal (Negative); Ketone, Urine Negative (Negative); Leukocyte Negative Leu/uL (Negative); Nitrite Negative (Negative); Protein, Urine (Dipstick) Negative (Neg-Trace); Specific Gravity, Urine 1.008 (1.002-1.036); Urobilinogen Normal mg/dL (Less than 2); pH, Urine 6.5 (5.0-9.0)
[2020-01-29 20:52] LABS: Troponin I Less than 0.010 ng/mL (< 0.028)
[2020-01-29] MEDS ORDERED: Acetaminophen 650 MG Suppository ONE (21:47)
[2020-01-29] MEDS ORDERED: Acetaminophen 325 MG TAB ONE (21:48)
[2020-01-29 23:16] VITALS: BMI 56.0
[2020-01-30 00:12] LABS: Troponin I 0.015 ng/mL (< 0.028)
[2020-01-30] MEDS ORDERED: Nitroglycerin 0.4 MG TAB (25 Tab Bottle) SL PRN (01:10)
--- NOTE | 2020-01-30 01:51 | PDOC.HHP ---
Hospitalist HPI - History of Present Illness Chest pain History of Present Illness: Patient states she came in to the ED today due to persisting chest pain that started yesterday. She states it was in the center of her chest and today began to move down her left arm. Reports the pain felt like indigestion last night and today it felt tightness. Her pain was a 9/10 in severity and fluctuated in intensity throughout the day. She reports taking her BP regularly and noticed that it was in the 200s range since yesterday. Reports having left facial and left upper extremity tingling with reduced sensation on and off since yesterday. Denies any slurred speech but did feel her speech was different, unable to describe how. No difficulty in eating/drinking. Did not have any extremity weakness. Reports lightheadedness on and off since yesterday with gait disturbances. Yesterday she was walking and nearly fell but caught herself on the wall. She felt like she was in a moving elevator. Reports intermittent headaches since yesterday and felt this was associated with sinus congestion. She took baby aspirin last night thinking it would help with her BP and because she was concerned for a stroke. She denies any double vision but did see black spots yesterday with her headache and high BP. She reports checking her BP regularly since having her gastric bypass and losing 100lbs. She was taken of her Triamterene a month ago as her BP was under good control and typically ranged in the 130 to 140s. Denies any changes recently with her medications. ROS: Denies any difficulty swallowing. No fevers, chills or sweats. No cough or hemoptysis. Denies any abdominal pain. No n/v. Reports chronic constipation managed well with stool softeners. Recently noted burning with urination which improved after she began to drink more water. Denies any dysuria as of the last week. No hematuria. All other review of systems are negative apart from those mentioned above in HPI. ED COURSE: EKG done in ED showed NSR, HR 68. CXR showed no acute changes. Labs unremarkable, initial troponin negative. UA unremarkable. Meds given in ED: fentaNYL (PF) injection 50 mcg IV Push Held 18:17 01/29/2020 Tylenol 650 mg Oral Given 21:50 01/29/2020 aspirin oral 325 mg Oral Given 19:25 01/29/2020 Benadryl injection 50 mg IV Push Given 18:04 01/29/2020 SOLU-Medrol injection 40 mg IV Push Given 18:04 01/29/2020 Pepcid (PF) 20 mg IV Push Given 18:02 01/29/2020 PAST MEDICAL HISTORY: 1. CVA x 3. 2. HTN. 3. Anxiety. 4. Morbid obesity. 5. Heart murmur. PAST SURGICAL HISTORY: 1. Bariatric surgery. 2. Hernia repair. SOCIAL HISTORY: She lives with and is the main caregiver for her daughter who has a learning disability/hydrocephalus. She walks with a walker. Denies any tobacco use, alcohol consumption or drug use. FAMILY HISTORY: Noncontributory. ALLERGIES: 1. Sulfa. 2. Iodine. CURRENT MEDICATIONS: 1. Pantoprazole 40 mg PO daily. 2. Nifedipine 30 mg PO daily. - Exam General Appearance: NAD Eye: PERRL, anicteric sclera Eye - other findings: EOM intact Neck: supple, no lymphadenopathy Heart: RRR, normal peripheral pulses Heart - other findings: mild central chest discomfort on palpation Respiratory: CTAB, no wheezes, no rales, no ronchi, normal chest expansion Gastrointestinal: soft, non-tender, non-distended, normal bowel sounds, no guarding, no rigidity Extremities: no edema Skin: normal turgor, no lesions, no rashes Neurological: no weakness Neurological - other findings: reduced sensation to left face and LUE. No speech deficit. Musculoskeletal: normal tone, normal strength Musculoskeletal - other findings: Power 5/5 in all limbs. Psychiatric: normal affect, normal behavior, A&O x 3, oriented to person Hospitalist Results - Labs Result Diagrams: 01/29/20 17:36 01/29/20 17:36 Lab results: WBC 7.6 thou/uL (4.8-10.8) 01/29/20 17:36 Hgb 13.3 g/dL (12.0-16.0) 01/29/20 17:36 Hct 44.0 % (36.0-47.0) 01/29/20 17:36 MCV 93.9 fL (78.0-98.0) 01/29/20 17:36 Plt Count 358 thou/uL (130-400) 01/29/20 17:36 Neutrophils % 62.1 % (42.0-75.0) 01/29/20 17:36 Sodium 142 mmol/L (136-145) 01/29/20 17:36 Potassium 3.7 mmol/L (3.5-5.1) 01/29/20 17:36 Chloride 105 mmol/L (98-107) 01/29/20 17:36 Carbon Dioxide 27 mmol/L (22-29) 01/29/20 17:36 BUN 16 mg/dL (9.8-20.1) 01/29/20 17:36 Creatinine 0.88 mg/dL (0.6-1.1) 01/29/20 17:36 Glucose 102 mg/dL (70-105) 01/29/20 17:36 Calcium 9.6 mg/dL (7.8-10.44) 01/29/20 17:36 Total Bilirubin 0.2 mg/dL (0.2-1.2) 01/29/20 17:36 AST 13 U/L (5-34) 01/29/20 17:36 ALT 11 U/L (8-55) 01/29/20 17:36 Alkaline Phosphatase 91 U/L (40-110) 01/29/20 17:36 Troponin I 0.015 ng/mL (< 0.028) 01/29/20 23:36 B-Natriuretic Peptide 13.8 pg/mL (0-100) 01/29/20 17:36 Serum Total Protein 7.2 g/dL (6.0-8.3) 01/29/20 17:36 Albumin 4.1 g/dL (3.5-5.0) 01/29/20 17:36 Lipase 26 U/L (8-78) 01/29/20 17:36 Urine Ketones Negative mg/dL (Negative) 01/29/20 19:10 Urine Blood Negative (Negative) 01/29/20 19:10 Urine Nitrite Negative (Negative) 01/29/20 19:10 Ur Leukocyte Esterase Negative Lurdes/uL (Negative) 01/29/20 19:10 - Radiology Interpretation Chest x-ray Status: report reviewed by [place] Hospitalist H&P A/P - Problem (1) Chest pain Code(s): R07.9 - CHEST PAIN, UNSPECIFIED Status: Acute Assessment and Plan: Continue cardiac monitoring. Trend troponins. Pain free at present. Keep NPO. Cardiology consult. Check TSH and BNP. Lipid panel with AM labs. Gentle hydration. Recent echo 06/2018. (2) Numbness on left side Code(s): R20.0 - ANESTHESIA OF SKIN Status: Acute Assessment and Plan: Hx of CVA x 3 without residual deficits. Symptoms improved from yesterday, but still with left sided tingling, reduced sensation to face and LUE. Obtain CT head. Brain MRI in the AM. Continue Aspirin and statin. Neuro consult. Carotid US. Echo ordered. Cardiac monitoring. PT/OT consult. (3) Hypertensive urgency Code(s): I16.0 - HYPERTENSIVE URGENCY Status: Acute Assessment and Plan: Since 2 days ago. Currently improved. Continues with symptoms of TIA/CVA. Continue to monitor BP reconcile home medications once verified. (4) HTN (hypertension) Code(s): I10 - ESSENTIAL (PRIMARY) HYPERTENSION Status: Chronic (5) Anxiety Code(s): F41.9 - ANXIETY DISORDER, UNSPECIFIED Status: Chronic Assessment and Plan: Resume home meds. Pre-medicate with Xanax 0.5 mg PO x 1 prior to MRI due to claustrophobia. (6) History of CVA (cerebrovascular accident) Code(s): Z86.73 - PRSNL HX OF TIA (TIA), AND CEREB INFRC W/O RESID DEFICITS Status: Chronic (7) Morbid obesity with BMI of 50.0-59.9, adult Code(s): E66.01 - MORBID (SEVERE) OBESITY DUE TO EXCESS CALORIES; Z68.43 - BODY MASS INDEX (BMI) 50.0-59.9, ADULT Status: Chronic (8) GERD (gastroesophageal reflux disease) Code(s): K21.9 - GASTRO-ESOPHAGEAL REFLUX DISEASE WITHOUT ESOPHAGITIS Status: Chronic Assessment and Plan: Resume pantoprazole . - Plan Plan: FULL CODE STATUS No MPOA/Surrogate decision maker.
[2020-01-30] MEDS ORDERED: ALPRAZolam 0.5 MG TAB PO SCH ×2 (02:15→03:30)
[2020-01-30] MEDS ORDERED: Sodium Chloride 0.9% 1,000 ML IV SCH (03:15)
[2020-01-30] MEDS: Acetaminophen 325 MG TAB PO PRN ×2 (03:35→08:03)
[2020-01-30 04:53] LABS: Cardiac Risk 2.9 (Less than 4.5)
[2020-01-30] MEDS: NIFEdipine XL 60 MG TAB PO SCH (08:03)
[2020-01-30] MEDS: Aspirin 325 mg Enteric Coated Tablet PO SCH (08:03)
[2020-01-30] MEDS: Pantoprazole 40 MG GRANULES PACKET PO SCH (08:04)
[2020-01-30] MEDS ORDERED: Aspirin Chewable 81 MG TAB PO SCH (09:00)
[2020-01-30] MEDS ORDERED: Regadenoson 0.4 MG/5 ML SYRINGE ONE (09:23)
--- NOTE | 2020-01-30 09:35 | ULT ---
CAROTID DUPLEX ULTRASOUND INCLUDING COLOR AND SPECTRAL DOPPLER IMAGING: HISTORY: CVA, TIA. FINDINGS: There is some vascular tortuosity. PSV right ICA 40 cm/s, EDV 14 cm/s. ICA/CCA ratio 0.3. PSV left ICA 87 cm/s, EDV 26 cm/s. ICA/CCA ratio 1.1. IMPRESSION: Somewhat decreased velocities in the right internal carotid artery relative to the left and relative to the right common carotid artery. Consider followup CT angiogram neck for further assessment in th is regard. No hemodynamic stenosis documented. POS: OFF
--- NOTE | 2020-01-30 12:57 | MRI ---
BRAIN MRI WITHOUT IV CONTRST: HISTORY: Left-sided numbness and tingling, CVA, stroke. FINDINGS: No focal mass or midline shift. There are several small punctate white matter changes bilaterally. No evidence for restricted diffusion. Unremarkable ADC map. Normal expected flow voids are present. No mass or midline shift. No acute hemorrhage. IMPRESSION: Several scattered small punctate white matter foci of high signal on T2 and FLAIR. No evidence for a cute infarct. No acute hemorrhage or mass or bleed. POS: OFF
--- NOTE | 2020-01-30 14:34 | PDOC.HOSPP ---
- Subjective Encounter Date: 01/30/20 Encounter Time: 02:20 Subjective: Patient t finished her first part of stress test. Ongoing intermittent chest pain still. She states that as part of bariatric surgery she takes the vitamin supplement which has the cholesterol medication in it. I have asked planed to the patient that her LDL is high and she needs a definite statin. Her TSH also came back on the low side. - Objective Vital Signs & Weight: Vital Signs (12 hours) Temp Pulse Pulse Resp BP BP BP 01/30/20 12:42 98.1 F 65 20 177/99 H 01/30/20 09:06 68 177/94 H 188/92 H 01/30/20 08:03 62 01/30/20 07:35 97.8 F 58 L 20 169/93 H 01/30/20 03:31 97.8 F 62 24 H 148/77 H Pulse Ox 01/30/20 12:42 98 01/30/20 09:06 01/30/20 08:03 01/30/20 07:35 98 01/30/20 03:31 95 Weight Admit Weight 336 lb 11.2 oz Weight 336 lb 11.2 oz I&O: 01/29/20 01/30/20 01/31/20 06:59 06:59 06:59 Intake Total 545 Output Total 350 Balance 195 Result Diagrams: 01/29/20 17:36 01/29/20 17:36 Hospitalist ROS - Medication Medications: Active Medications Generic Name Dose Route Start Last Admin Trade Name Freq PRN Reason Stop Dose Admin Acetaminophen 650 mg 01/30/20 03:02 01/30/20 08:03 Acetaminophen 325 Mg Tab PO 650 mg Q4H PRN Administration Headache/Fever/MILD Pain 1-3 Alprazolam 0.5 mg 01/30/20 03:30 01/30/20 10:08 Alprazolam 0.5 Mg Tab PO 01/30/20 18:00 0.5 mg WILLCALL SANNA Administration Aspirin 325 mg 01/30/20 09:00 01/30/20 08:03 Aspirin 325 Mg Enteric Coated Tablet PO 325 mg DAILY SANNA Administration Sodium Chloride 1,000 mls @ 65 mls/hr 01/30/20 03:15 01/30/20 03:41 Normal Saline 0.9% IV 1,000 mls .[id number] SANNA Administration Nifedipine 60 mg 01/30/20 09:00 01/30/20 08:03 Nifedipine Xl 60 Mg Tab PO 60 mg DAILY SANNA Administration Pantoprazole Sodium 40 mg 01/30/20 09:00 01/30/20 08:04 Pantoprazole 40 Mg Granules Packet PO 40 mg DAILY SANNA Administration Sodium Chloride 10 ml 01/30/20 01:08 01/30/20 03:35 Flush - Normal Saline 10 Ml Syringe IVF 10 ml PRN PRN Administration Saline Flush - Exam General Appearance: NAD, awake alert General - other findings: Obese walking in the hallway. Eye: PERRL ENT: normocephalic atraumatic Neck: supple Heart: RRR, normal peripheral pulses Respiratory: CTAB, normal chest expansion Gastrointestinal: soft, normal bowel sounds Neurological: no weakness Psychiatric: A&O x 3 Hosp A/P - Plan Chest pain Code(s): R07.9 - CHEST PAIN, UNSPECIFIED Status: Acute Assessment a (2) Numbness on left side Code(s): R (3) Hypertensive urgency Code(s): I16.0 - HYPERTENSIVE URGENCY Status: Acute Assessment and Plan: (4) HTN (hypertension) Code(s): I10 - ESSENTIAL (PRIMARY) HYPERTENSION Status: Chronic (5) Anxiety Code(s): F41.9 - ANXIETY DISORDER, UNSPECIFIED Status: Chronic Assessment and Plan: Resume home meds. Pre-medicate with Xanax 0.5 mg PO x 1 prior to MRI due to claustrophobia. (6) History of CVA (cerebrovascular accident) Code(s): Z86.73 - PRSNL HX OF TIA (TIA), AND CEREB INFRC W/O RESID DEFICITS Status: Chronic (7) Morbid obesity with BMI of 50.0-59.9, adult Code(s): E66.01 - MORBID (SEVERE) OBESITY DUE TO EXCESS CALORIES; Z68.43 - BODY MASS INDEX (BMI) 50.0-59.9, ADULT Status: Chronic (8) GERD (gastroesophageal reflux disease) Code(s): K21.9 - GASTRO-ESOPHAGEAL REFLUX DISEASE WITHOUT ESOPHAGITIS Status: Chronic Assessment and Plan: Resume pantoprazole . Spent more than 30 minutes for today's patient care. Patient had a bariatric surgery and gets vitamin supplement with diet. Her TSH is 0.31 she does not have any home thyroid medication. Will check the free T4 and T3 and if needed she might need to be on low-dose methimazole. Hyperlipidemia with LDL of 113 -I am starting her on a low-dose Lipitor even if she has supplement embedded in the vitamin it needs to be addressed by the primary care physician. Left hemiparesis Very mild -mainly on her hand and she seems to be holding any objects without much problem. I have seen her walking with a walker and no trouble. Patient states that the weakness is only intermittent so it is unlikely that she has a acute CVA. -Routine physical therapy unless they recommend otherwise she can go home. Patient lives with her daughter. Await further completion of the work-up. COVID swab pending.
[2020-01-30 14:50] LABS: SARS-CoV-2 MS2 Positive; SARS-CoV-2 N Gene Negative; SARS-CoV-2 S Gene Negative; SARS-CoV-2 by NAA Not Detected (NotDetected); SARS-CoV-2 orf1ab Negative
--- NOTE | 2020-01-30 20:11 | CON ---
DATE OF CONSULTATION: HISTORY OF PRESENT ILLNESS: Sarah Sotomayor is a 55-year-old black female, who has been seen and evaluated by Dr. Stewart in the past. In May of 2017, she was seen for preoperative evaluation prior to gastric sleeve. Echocardiogram revealed ejection fraction of 55% to 60% with severe concentric left ventricular hypertrophy, diastolic dysfunction, mitral regurgitation, and mild tricuspid regurgitation. She underwent Lexiscan Cardiolite, which was equivocal with decreased tracer activity in the inferior wall, possibly due to diaphragmatic attenuation or ischemia. It was felt she was an acceptable cardiac risk for anesthesia and she underwent a gastric sleeve by Dr. Harrison without incident. She has not been seen since that time. She now presents complaining of onset of chest discomfort on January 26 in the morning when she awoke. She was having pressure on the left side of her chest that did not radiate. She at times would have diaphoresis and the pain would be pleuritic in nature. Episodes would last approximately 5 minutes that were not associated with exertion. She would have multiple episodes per hour over the next 48 hours before she came to the emergency room. Cardiac enzymes have been unremarkable. She also has had problems with lightheadedness and dizziness. PAST MEDICAL HISTORY: Hypertension, morbid obesity, obstructive sleep apnea, diabetes, and history of CVA x3. OPERATIONS: Gastric sleeve and hernia repair. MEDICATIONS: 1. Aspirin 81 daily. 2. Nifedipine 60 mg daily. 3. Pantoprazole 40 mg daily. ALLERGIES: GRAPE FLAVOR, RASPBERRY, SULFA, AND BETADINE SOAP. SHE DEVELOPED A RASH AFTER TOPICAL BETADINE. SHE IS NOT CERTAIN OF ANY TYPE OF PROBLEM WITH INTRAVENOUS CONTRAST, BUT SHE IS NOT CERTAIN IF SHE HAS EVER HAD THAT. SOCIAL HISTORY: No smoking or drinking. REVIEW OF SYSTEMS: Otherwise unremarkable. PHYSICAL EXAMINATION: VITAL SIGNS: 177/99 and pulse of 65. HEENT: PERRL. NECK: Supple. CHEST: Clear. CARDIAC: S1 and S2 normal without any S3, S4, or murmurs. ABDOMEN: Normal bowel sounds without tenderness or organomegaly. EXTREMITIES: Revealed no clubbing, cyanosis, or edema. NEUROLOGIC: Grossly intact. SKIN: Warm and dry. MUSCULOSKELETAL EXAMINATION: Revealed palpable left sternal tenderness that seems to reproduce her pain. LABORATORY DATA: EKG revealed normal sinus rhythm with left axis deviation, possible old inferior infarction and poor R-wave progression. Brain MRI revealed several scattered small punctate white matter foci of high signal. No evidence of acute infarction. Carotid Doppler revealed no hemodynamically significant stenosis. CBC is unremarkable. D-dimer 0.48. Cholesterol 185, triglycerides 38, HDL 64, and LDL 113. TSH is low at 0.3151. Cardiac enzymes are normal x3. Sodium 142, potassium 3.7, chloride 105, carbon dioxide 27, BUN 16, and creatinine 0.88. Liver function tests are normal. IMPRESSION: 1. Atypical chest discomfort with palpable chest tenderness, most consistent with chest wall pain. 2. Abnormal EKG with possible inferior infarction and poor R-wave progression. 3. Hypertension. 4. Hypercholesterolemia. 5. Obstructive sleep apnea. 6. Morbid obesity, status post gastric sleeve. 7. Status post three cerebrovascular accidents. 8. Anxiety. 9. Gastroesophageal reflux disease. PLAN: Ms. Sotomayor's chest pain is most consistent with chest wall pain with palpable chest tenderness. She will undergo adenosine Cardiolite testing for further evaluation. Job ID: [id number] [facility]
[2020-01-30] MEDS ORDERED: Atorvastatin Calcium 40 MG TAB PO SCH (21:00)
[2020-01-30] MEDS: Atorvastatin Calcium 20 MG TAB PO SCH (21:02)
[2020-01-31 05:26] LABS: Free T4 (Free Thyroxine) 1.03 ng/dL (0.70-1.48)
[2020-01-31] MEDS: Aspirin 325 mg Enteric Coated Tablet PO SCH (09:59)
[2020-01-31] MEDS: NIFEdipine XL 60 MG TAB PO SCH (09:59)
[2020-01-31] MEDS: Pantoprazole 40 MG GRANULES PACKET PO SCH (09:59)
--- NOTE | 2020-01-31 10:35 | NM ---
EXAM: NM Cardiac Stress W EF WF PROVIDED CLINICAL HISTORY: Chest pain, acute coronary syndrome. COMPARISON: None FINDINGS: There is a small area of mild diminished uptake of radiotracer seen within the distal anterior left v entricular wall and at the apex on stress acquisition which does demonstrate reversibility on resting acquisition. No additional reversible defects are identified. Rotating planar images demonstr ate breast attenuation. Gated images show normal ventricular wall motion and wall thickening. The calculated left ventricular ejection fraction is 60%. Quantitative analysis also demonstrates a rever sible defect in the distal anterior wall and at the apex. IMPRESSION: 1. Abnormal myocardial perfusion study with small area of mild reversibility seen involving the dista l anterior left ventricular wall and at the apex suggesting area of ischemia. 2. Normal LVEF of 60%.
--- NOTE | 2020-01-31 10:47 | CON ---
DATE OF CONSULTATION: 01/31/2020 CONSULTING PHYSICIAN: Hospitalist Service. IMPRESSION: 1. Benign subjective numbness and tingling of the left side of the body with normal MRI of the brain. 2. Probable chest wall pain based on cardiology's assessment. PLAN: The patient can be discharged home. HISTORY OF PRESENT ILLNESS: Ms. Sotomayor is a 55-year-old black female with a past history of hypertension. She came in with complaints of substernal chest pain and tingling and numbness on the left side of the body that has been going on for 2 days. She had some associated headache. There was no nausea or vomiting. She denied any blurred vision or dizziness. Her cardiac workup thus far seems to be negative. She had an MRI of the brain done, which showed some minimal small vessel changes but nothing acute. She reports having a history of migraine headaches in the past. She otherwise denies any focal neurologic deficits. PAST MEDICAL HISTORY: Hypertension. ALLERGIES: IODINE AND SOME OTHER [id number] ISSUES. FAMILY HISTORY: Noncontributory. SOCIAL HISTORY: No tobacco or alcohol use. MEDICATIONS: List was reviewed. REVIEW OF SYSTEMS: Ten-system review of systems is otherwise negative. PHYSICAL EXAMINATION: GENERAL: She is an obese, middle-aged woman, in no acute distress. VITAL SIGNS: Stable. She is afebrile. HEENT: Pupils equal and reactive. Conjunctivae clear. Oropharynx clear. Cranium, normocephalic and atraumatic. NECK: Supple. No lymphadenopathy. EXTREMITIES: No cyanosis or edema. SKIN: Clear. ABDOMEN: Soft and nontender. Chest was tender to palpation on the sternum. NEUROLOGIC: She is alert and appropriate. Her speech is fluent and clear. Cranial nerves were intact. Motor exam shows good strength bilaterally. There was no fix or drift. Sensation was subjectively decreased on the left arm and leg. She can walk independently. No abnormal movements were seen. LABORATORY DATA: EKG shows a sinus rhythm. Laboratory studies were reviewed. SUMMARY: There appears to be a subjective numbness and tingling without any objective abnormalities. These tend to be benign. I would be happy to follow up with her as an outpatient. Job ID: [id number]
--- NOTE | 2020-01-31 11:37 | CT ---
PRELIMINARY REPORT/[facility]/EMERGENCY AFTER HOURS PROCEDURE: EXAM: CT Head Without Intravenous Contrast. CLINICAL HISTORY: Left sided numbness/tingling, hx of CVA TECHNIQUE: Axial computed tomography images of the head/brain without intravenous contrast. COMPARISON: CT\SR - CT BRAIN WO CON - 06/17/2019 08:49 PM [facility] FINDINGS: BRAIN: No acute intraparenchymal hemorrhage. No mass lesion. No CT evidence for acute territorial inf arct. No midline shift or extra-axial collection. VENTRICLES: No hydrocephalus. ORBITS: The orbits are unremarkable. SINUSES AND MASTOIDS: The paranasal sinuses and mastoid air cells are clear. SOFT TISSUES: No significant facial or scalp soft tissue swelling evident. No radiopaque foreign body is seen. BONES: No acute skull fracture. Similar lucency is seen along the posterior right temporal bone. IMPRESSION: No acute intracranial abnormality. Small temporal bone lucency, similar in appearance to the comparison examination. This can be further evaluated with a CT of the temporal bones or skull b ase MRI. ELECTRONICALLY SIGNED BY: Ta Helms DO Jan 30, 2020 2:02:12 AM CDT FINAL REPORT EMERGENT AFTERHOURS NONCONTRAST CT HEAD: 01/30/20 HISTORY: Left sided numbness and tingling. History of CVA. COMPARISON: 06/17/19. IMPRESSION: 1. No acute intracranial abnormality is demonstrated. 2. 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 Preliminar y report recommends further evaluation with skull base MRI. 3. Findings in agreement with preliminary report by [facility] . POS: [facility]
--- NOTE | 2020-01-31 12:10 | PDOC.HOSPP ---
- Subjective Encounter Date: 01/31/20 Encounter Time: 09:40 Subjective: She finished her second part of a recent adenosine stress test. She had a lot of funny feelings while she received adenosine. She is feeling better now. Her sister is out of town and she would not be able to get a ride today. - Objective Vital Signs & Weight: Vital Signs (12 hours) Temp Pulse Resp BP BP Pulse Ox 01/31/20 11:37 97.7 F 61 20 183/98 H 100 01/31/20 10:00 97.9 F 87 18 179/92 H 100 01/31/20 09:59 87 179/92 H 01/31/20 09:12 62 106/58 L 01/31/20 08:00 97.7 F 57 L 16 117/71 99 01/31/20 03:37 97.8 F 60 13 144/84 H 98 01/31/20 02:07 99 Weight Admit Weight 336 lb 11.2 oz Weight 336 lb 11.2 oz I&O: 01/30/20 01/31/20 02/01/20 06:59 06:59 06:59 Intake Total 545 782 Output Total 350 1500 300 Balance 195 -168 -300 Result Diagrams: 01/29/20 17:36 01/29/20 17:36 Hospitalist ROS - Medication Medications: Active Medications Generic Name Dose Route Start Last Admin Trade Name Freq PRN Reason Stop Dose Admin Acetaminophen 650 mg 01/30/20 03:02 01/30/20 08:03 Acetaminophen 325 Mg Tab PO 650 mg Q4H PRN Administration Headache/Fever/MILD Pain 1-3 Aspirin 325 mg 01/30/20 09:00 01/31/20 09:59 Aspirin 325 Mg Enteric Coated Tablet PO 325 mg DAILY SANNA Administration Atorvastatin Calcium 20 mg 01/30/20 21:00 01/30/20 21:02 Atorvastatin Calcium 20 Mg Tab PO 20 mg HS SANNA Administration Nifedipine 60 mg 01/30/20 09:00 01/31/20 09:59 Nifedipine Xl 60 Mg Tab PO 60 mg DAILY SANNA Administration Pantoprazole Sodium 40 mg 01/30/20 09:00 01/31/20 09:59 Pantoprazole 40 Mg Granules Packet PO 40 mg DAILY SANNA Administration Sodium Chloride 10 ml 01/30/20 01:08 01/30/20 21:03 Flush - Normal Saline 10 Ml Syringe IVF 10 ml PRN PRN Administration Saline Flush - Exam General Appearance: NAD, awake alert Eye: PERRL ENT: normocephalic atraumatic Neck: supple Heart: RRR Respiratory: CTAB, normal chest expansion Gastrointestinal: soft, normal bowel sounds Neurological: no focal deficits Psychiatric: A&O x 3 Hosp A/P - Plan Chest pain Code(s): R07.9 - CHEST PAIN, UNSPECIFIED Status: Acute Assessment a (2) Numbness on left side Code(s): R (3) Hypertensive urgency Code(s): I16.0 - HYPERTENSIVE URGENCY Status: Acute Assessment and Plan: (4) HTN (hypertension) Code(s): I10 - ESSENTIAL (PRIMARY) HYPERTENSION Status: Chronic (5) Anxiety Code(s): F41.9 - ANXIETY DISORDER, UNSPECIFIED Status: Chronic Assessment and Plan: Resume home meds. Pre-medicate with Xanax 0.5 mg PO x 1 prior to MRI due to claustrophobia. (6) History of CVA (cerebrovascular accident) Code(s): Z86.73 - PRSNL HX OF TIA (TIA), AND CEREB INFRC W/O RESID DEFICITS Status: Chronic (7) Morbid obesity with BMI of 50.0-59.9, adult Code(s): E66.01 - MORBID (SEVERE) OBESITY DUE TO EXCESS CALORIES; Z68.43 - BODY MASS INDEX (BMI) 50.0-59.9, ADULT Status: Chronic (8) GERD (gastroesophageal reflux disease) Code(s): K21.9 - GASTRO-ESOPHAGEAL REFLUX DISEASE WITHOUT ESOPHAGITIS Status: Chronic Assessment and Plan: Resume pantoprazole . Spent more than 30 minutes for today's patient care. Patient had a bariatric surgery and gets vitamin supplement with diet. Her TSH is 0.31 she does not have any home thyroid medication. Will check the free T4 and T3 and if needed she might need to be on low-dose methimazole. Noncardiac and probably musculoskeletal related chest pain Abnormal EKG with inferior infarct and poor R wave progression Hyperlipidemia with LDL of 113 -I am starting her on a low-dose Lipitor even if she has supplement embedded in the vitamin it needs to be addressed by the primary care physician. Left hemiparesis Very mild -mainly on her hand and she seems to be holding any objects without much problem. I have seen her walking with a walker and no trouble. Patient states that the weakness is only intermittent so it is unlikely that she has a acute CVA. -Routine physical therapy unless they recommend otherwise she can go home. Patient lives with her daughter. Await further completion of the work-up. COVID swab pending.-------------------> negative Benign subjective numbness and tingling on the left side of the body -Neurology recommended outpatient follow-up with Dr. High -Second part of the stress test pending, Will wait for the result and probable discharge tomorrow as patient not able to get ride as her sister is out of town.
[2020-01-31] MEDS ORDERED: NIFEdipine XL 30 MG TAB PO SCH (14:00)
[2020-01-31] MEDS ORDERED: predniSONE 20 MG TAB PO SCH (19:45)
[2020-01-31] MEDS ORDERED: diphenhydrAMINE 25 MG CAP PO SCH (19:45)
[2020-01-31] MEDS: Atorvastatin Calcium 20 MG TAB PO SCH (20:06)
[2020-01-31] MEDS ORDERED: Famotidine 20 MG TAB PO SCH (20:15)
[2020-02-01] MEDS: Famotidine 20 MG TAB PO SCH ×2 (00:06→04:22)
[2020-02-01] MEDS: diphenhydrAMINE 25 MG CAP PO SCH ×2 (00:06→04:22)
[2020-02-01] MEDS: predniSONE 20 MG TAB PO SCH ×2 (00:06→04:22)
[2020-02-01 05:06] LABS: Anion Gap 13 mmol/L (10-20); BUN (Urea Nitrogen) 15 mg/dL (9.8-20.1); Calc. Creatinine Clearance 170 mL/min (70-130); Calcium 9.9 mg/dL (7.8-10.44); Carbon Dioxide 27 mmol/L (22-29); Chloride 103 mmol/L (98-107); Estimated GFR-MDRD 79; Glucose 153 mg/dL (70-105); Potassium 4.4 mmol/L (3.5-5.1); Sodium 139 mmol/L (136-145)
[2020-02-01] MEDS: Aspirin 325 mg Enteric Coated Tablet PO SCH (06:08)
[2020-02-01] MEDS ORDERED: Heparin 10,000 UNITS/ 10 ML VIAL ONE (08:22)
[2020-02-01] MEDS ORDERED: Fentanyl 100 MCG/2 ML VIAL ONE (08:53)
[2020-02-01] MEDS ORDERED: Midazolam HCl 2 mg/2 ml Vial ONE (08:53)
[2020-02-01] MEDS ORDERED: Verapamil 5 MG/2 ML VIAL ONE (08:59)
[2020-02-01] MEDS ORDERED: Nitroglycerin 100MG/250ML BOT 250 ML ONE (08:59)
[2020-02-01] MEDS ORDERED: NIFEdipine XL 90 MG TAB PO SCH (09:00)
[2020-02-01] MEDS ORDERED: Sodium Chloride 0.9% 200 ML IV PRN (09:16)
[2020-02-01] MEDS ORDERED: Acetaminophen/Codeine 30-300mg Tablet PO PRN (09:16)
[2020-02-01] MEDS ORDERED: Sodium Chloride 0.9% 500 ML IV SCH (09:30)
[2020-02-01] MEDS: Pantoprazole 40 MG GRANULES PACKET PO SCH (10:02)
[2020-02-01] MEDS: Acetaminophen 325 MG TAB PO PRN (10:46)
[2020-02-01] MEDS ORDERED: Iopamidol 370 76% 100 ML VIAL ONE (12:54)
[2020-02-01] MEDS ORDERED: predniSONE 50 MG TAB PO SCH (13:00)
[2020-02-01 16:05] VITALS: BP 152/83; TEMP 98.7
--- NOTE | 2020-02-02 07:09 | DIS ---
DATE OF ADMISSION: 01/29/2020 DATE OF DISCHARGE: 02/01/2020 DISCHARGE DIAGNOSES: 1. Hyperlipidemia with low-density lipoprotein of 113. 2. Left hemiparesis symptoms, resolved. 3. Coronavirus negative. 4. Morbid obesity. 5. Gastroesophageal reflux disease. 6. History of cerebrovascular accident. DISCHARGE MEDICATIONS: 1. Protonix 40 mg daily. 2. Nifedipine ER 60 mg daily. 3. Aspirin 81 mg daily. 4. Lipitor 20 mg at bedtime. PHYSICAL EXAMINATION: VITAL SIGNS: On the day of discharge, temperature 98.2, pulse 89, blood pressure 135/87, satting 98% on room air. GENERAL: The patient is alert and oriented x4. She is resting well, in no acute distress. CARDIOVASCULAR: Regular rate and rhythm without murmurs, rubs, or gallops. LUNGS: Clear to auscultation bilaterally without wheezing, rales, or rhonchi. ABDOMEN: Soft, nontender, nondistended. Good bowel sounds. EXTREMITIES: Without any pitting edema. CONSULTS: 1. Dr. Bonilla, hyperion administrator. 2. Dr. High, neurologist. HOSPITAL COURSE: This is a 55-year-old obese female admitted with chest pain, numbness on her left side. She had an abnormal EKG with inferior infarct and poor R-wave progression. Stress test showed abnormal myocardial perfusion study with small area of mild reversibility in the distal anterior left ventricular wall and the apex suggesting ischemia. EF was 60%. She had a cath on the . Cath showed normal coronaries, noncardiac causes of chest pain. She also had LDL level of 113 and TSH was 0.29916, and free T4 is in the normal range, free T3 is 1.69. She mentioned that because of her bariatric surgery, she gets vitamin supplement which has a part of statin type medication. I have recommended that she follows with her primary care physician regarding that component. I have given her low- dose Lipitor that can be stopped by the primary care physician if deemed necessary. Her LFT is in the normal range. Regarding her mild hyperthyroidism with a TSH of 0.31 and normal free T4, I deferred this management to the primary care doctor as well, as maybe she requires repeat TSH in 2 weeks and then if indicated, then should be considered starting her on methimazole. Since it is very close to on the low normal side, I avoided starting her on methimazole as an inpatient. She is medically stable to be discharged home today. DISCHARGE INSTRUCTIONS: Activity as tolerated. Regular diet. Follow up with primary care physician in 1 week. Request for primary care physician. Please see whether her taking Lipitor is okay given her LDL level of 113. Please also follow up with repeat TSH in 2 to 3 weeks as she has a TSH on the low normal side. Discharge time took over 35 minutes. Job ID: [id number]
== END 2020-02-01 18:16 | disposition home or self-care (01) ==
LOC: ERS 16:58 → 2SW 19:58
PROVIDERS: ADMIT Internal Medicine; ATTEND Internal Medicine
PROC: 4A023N7 Measurement of Cardiac Sampling and Pressure, Left Heart, Percutaneous Approach (ICD-10-PCS; principal; 2020-02-01)
PROC: B2111ZZ Fluoroscopy of Multiple Coronary Arteries using Low Osmolar Contrast (ICD-10-PCS; 2020-02-01)
DX: R07.89 Other chest pain (principal); R20.0 Anesthesia of skin; E78.5 Hyperlipidemia, unspecified; K21.9 Gastro-esophageal reflux disease without esophagitis; I16.0 Hypertensive urgency; I10 Essential (primary) hypertension; F41.9 Anxiety disorder, unspecified; G47.33 Obstructive sleep apnea (adult) (pediatric); E78.00 Pure hypercholesterolemia, unspecified; E11.9 Type 2 diabetes mellitus without complications; E05.90 Thyrotoxicosis, unspecified without thyrotoxic crisis or storm; E66.01 Morbid (severe) obesity due to excess calories; Z68.43 Body mass index [BMI] 50.0-59.9, adult; Z86.73 Personal history of transient ischemic attack (TIA), and cerebral infarction without residual deficits; Z79.82 Long term (current) use of aspirin; Z79.899 Other long term (current) drug therapy; Z88.2 Allergy status to sulfonamides; Z88.3 Allergy status to other anti-infective agents; Z91.018 Allergy to other foods; Z91.030 Bee allergy status; Z98.84 Bariatric surgery status; Z20.828 Contact with and (suspected) exposure to other viral communicable diseases
CPT/HCPCS: 36415; 70450; 70551; 71045; 78452; 80048; 80053; 80061; 81003; 83690; 83880; 84439; 84443; 84481; 84484; 85025; 85379; 87635; 93005; 93017; 93454; 93880; 94760; 96374; 96375; 99152; A9500; G0378; J1200; J1644; J2250; J2785; J2920; J3010; J7512; Q0163; Q9967; S0028; U0003

== ENCOUNTER 2020-07-21 20:59 | Observation (INO) | payer OTHER ==
[2020-07-21 21:34] LABS: #Eosinphils 0.2 thou/uL (0.0-0.7); #Lymphocytes 1.7 thou/uL (1.20-3.40); #Monocytes 0.7 thou/uL (0.11-0.59); #Neutrophils 6.9 thou/uL (1.40-6.50); %Basophils 0.5 % (0.0-1.0); %Eosinophils 2.2 % (0.0-10.0); %Lymphocytes 17.6 % (21.0-51.0); %Monocytes 6.8 % (0.0-10.0); %Neutrophils 72.9 % (42.0-75.0); Hemoglobin 14.4 g/dL (12.0-16.0); Mean Corpuscular HGB CONC 32.8 g/dL (32.0-36.0); Mean Corpuscular Hemoglobin 30.2 pg (27.0-31.0); Platelet Count 342 thou/uL (130-400); RBC Distribution Width 11.9 % (11.5-14.5); Red Blood Cell (RBC) Count 4.76 mill/uL (4.20-5.40); White Blood Cell (WBC) Count 9.5 thou/uL (4.8-10.8)
[2020-07-21] MEDS ORDERED: Nitroglycerin 0.4 MG TAB 1 EACH ONE (21:57)
[2020-07-21] MEDS ORDERED: Aspirin 325 MG TAB ONE (21:57)
[2020-07-21 21:58] LABS: ALT (SGPT) 10 U/L (8-55); AST (SGOT) 13 U/L (5-34); Albumin 4.4 g/dL (3.5-5.0); Alkaline Phosphatase 105 U/L (40-110); Anion Gap 15 mmol/L (10-20); BUN (Urea Nitrogen) 10 mg/dL (9.8-20.1); Bilirubin, Total 0.5 mg/dL (0.2-1.2); Calc. Creatinine Clearance 0 mL/min (70-130); Calcium 9.9 mg/dL (7.8-10.44); Carbon Dioxide 26 mmol/L (22-29); Chloride 105 mmol/L (98-107); Globulin 3.4 g/dL (2.4-3.5); Glucose 119 mg/dL (70-105); Potassium 3.5 mmol/L (3.5-5.1); Protein, Total 7.8 g/dL (6.0-8.3); Sodium 142 mmol/L (136-145)
[2020-07-21] MEDS ORDERED: hydrALAZINE 20 MG/ML VIAL ONE (22:37)
[2020-07-21] MEDS ORDERED: Nitroglycerin 2% Ointment 1 INCH/1 GM Packet ONE (22:37)
[2020-07-21] MEDS ORDERED: Morphine 4 MG/ML VIAL ONE (22:50)
[2020-07-21] MEDS ORDERED: Ondansetron PF 4 MG/2 ML Vial ONE (22:50)
[2020-07-22] MEDS ORDERED: Calcium Carbonate 500 MG ChewTAB PO PRN (00:23)
[2020-07-22] MEDS ORDERED: Ondansetron ODT 4 MG TAB PO PRN (00:23)
[2020-07-22] MEDS ORDERED: Ondansetron PF 4 MG/2 ML Vial IVP PRN (00:23)
[2020-07-22 00:43] LABS: Hemoglobin A1c 5.2 % (4.0-6.0)
[2020-07-22 01:21] VITALS: BMI 56.2
[2020-07-22] MEDS: Acetaminophen 325 MG TAB PO PRN ×2 (01:46→10:30)
[2020-07-22] MEDS ORDERED: Albuterol 200 PUFF (6.7GM INHALER) INH PRN (01:53)
[2020-07-22] MEDS ORDERED: Atorvastatin Calcium 40 MG TAB PO SCH ×2 (02:00→21:00)
[2020-07-22 02:16] LABS: #Monocytes 0.8 thou/uL (0.11-0.59); #Neutrophils 9.9 thou/uL (1.40-6.50); %Basophils 0.3 % (0.0-1.0); %Eosinophils 0.4 % (0.0-10.0); %Lymphocytes 8.3 % (21.0-51.0); %Monocytes 6.6 % (0.0-10.0); %Neutrophils 84.5 % (42.0-75.0); Hemoglobin 13.2 g/dL (12.0-16.0); Mean Corpuscular HGB CONC 33.1 g/dL (32.0-36.0); Mean Corpuscular Hemoglobin 30.5 pg (27.0-31.0); Mean Corpuscular Volume 92.1 fL (78.0-98.0); Mean Platelet Volume 6.9 fL (7.4-10.4); Platelet Count 316 thou/uL (130-400); RBC Distribution Width 11.9 % (11.5-14.5); Red Blood Cell (RBC) Count 4.31 mill/uL (4.20-5.40); White Blood Cell (WBC) Count 11.7 thou/uL (4.8-10.8)
[2020-07-22 02:40] LABS: Troponin I 0.012 ng/mL (< 0.028)
[2020-07-22] MEDS ORDERED: Ketorolac Tromethamine 30 MG/ML VIAL IVP SCH ×2 (04:45→11:15)
[2020-07-22 05:37] LABS: Troponin I Less than 0.010 ng/mL (< 0.028)
[2020-07-22] MEDS ORDERED: Aspirin 325 mg Enteric Coated Tablet PO SCH (09:00)
[2020-07-22] MEDS ORDERED: FLU VACC QS2020-21(6MOS UP)/PF 60 MCG/0.5 ML SYRINGE IM ONE (09:00)
[2020-07-22] MEDS ORDERED: NIFEdipine XL 60 MG TAB PO SCH (09:00)
[2020-07-22] MEDS ORDERED: Enoxaparin Sodium 40 MG/0.4 ML SYRINGE SC SCH (09:00)
[2020-07-22 09:07] LABS: SARS-CoV-2 PCR by NAA Not Detected (NotDetected)
[2020-07-22] MEDS ORDERED: AMOXicillin 250 MG CAP PO SCH (15:00)
[2020-07-22 15:38] VITALS: TEMP 97.9
[2020-07-22 15:55] VITALS: BP 140/82
[2020-07-23] MEDS ORDERED: Aspirin 81 mg Enteric Coated Tablet PO SCH (09:00)
== END 2020-07-22 16:56 | disposition home or self-care (01) ==
LOC: ERS 20:59 → 2NO 23:17
PROVIDERS: ADMIT Family Medicine; ATTEND Family Medicine
DX: R07.89 Other chest pain (principal); K05.10 Chronic gingivitis, plaque induced; I16.0 Hypertensive urgency; I10 Essential (primary) hypertension; R01.1 Cardiac murmur, unspecified; E78.5 Hyperlipidemia, unspecified; F41.9 Anxiety disorder, unspecified; Z86.73 Personal history of transient ischemic attack (TIA), and cerebral infarction without residual deficits; Z79.82 Long term (current) use of aspirin; Z79.899 Other long term (current) drug therapy; Z88.2 Allergy status to sulfonamides; Z88.3 Allergy status to other anti-infective agents; Z91.013 Allergy to seafood; Z91.018 Allergy to other foods; Z20.822 Contact with and (suspected) exposure to COVID-19
CPT/HCPCS: 36415; 70450; 71046; 80053; 80061; 83036; 84443; 84484; 85025; 87635; 90471; 90662; 93005; 96372; 96374; 96375; 96376; G0008; G0378; J0360; J1650; J1885; J2270; J2405; U0003; U0005

== ENCOUNTER 2020-11-09 18:06 | Observation (INO) | payer OTHER ==
[2020-11-09] MEDS ORDERED: Aspirin 325 MG TAB ONE (19:55)
[2020-11-09 20:38] LABS: #Basophils 0.1 thou/uL (0.0-0.2); #Eosinphils 0.3 thou/uL (0.0-0.7); #Lymphocytes 1.8 thou/uL (1.20-3.40); #Monocytes 0.6 thou/uL (0.11-0.59); #Neutrophils 5.8 thou/uL (1.40-6.50); %Basophils 1.1 % (0.0-1.0); %Eosinophils 3.3 % (0.0-10.0); %Lymphocytes 20.6 % (21.0-51.0); %Monocytes 7.1 % (0.0-10.0); Hemoglobin 13.3 g/dL (12.0-16.0); Mean Corpuscular HGB CONC 33.1 g/dL (32.0-36.0); Mean Corpuscular Hemoglobin 30.4 pg (27.0-31.0); Mean Corpuscular Volume 91.8 fL (78.0-98.0); Mean Platelet Volume 7.1 fL (7.4-10.4); Platelet Count 295 thou/uL (130-400); Red Blood Cell (RBC) Count 4.38 mill/uL (4.20-5.40); White Blood Cell (WBC) Count 8.5 thou/uL (4.8-10.8)
[2020-11-09 21:06] LABS: ALT (SGPT) 7 U/L (8-55); AST (SGOT) 13 U/L (5-34); Albumin 4.1 g/dL (3.5-5.0); Alkaline Phosphatase 99 U/L (40-110); Anion Gap 16 mmol/L (10-20); BUN (Urea Nitrogen) 13 mg/dL (9.8-20.1); Bilirubin, Total 0.3 mg/dL (0.2-1.2); CK (CPK) 79 U/L (29-168); Calc. Creatinine Clearance 0 mL/min (70-130); Calcium 9.6 mg/dL (7.8-10.44); Carbon Dioxide 23 mmol/L (22-29); Chloride 107 mmol/L (98-107); Globulin 3.1 g/dL (2.4-3.5); Glucose 94 mg/dL (70-105); Potassium 3.8 mmol/L (3.5-5.1); Protein, Total 7.2 g/dL (6.0-8.3); Sodium 142 mmol/L (136-145)
[2020-11-09] MEDS ORDERED: Acetaminophen 500 MG TAB ONE (21:51)
[2020-11-09] MEDS ORDERED: Nicotine 21 MG PATCH TD SCH (22:00)
[2020-11-10 00:04] VITALS: BMI 56.5
[2020-11-10 00:10] LABS: SARS-CoV-2 NAA Rapid Test Not Detected (NotDetected)
[2020-11-10] MEDS ORDERED: Acetaminophen 325 MG TAB ONE ×2 (04:50→09:08)
[2020-11-10] MEDS: Acetaminophen 325 MG TAB PO PRN ×2 (04:58→09:12)
[2020-11-10 05:08] LABS: #Eosinphils 0.2 thou/uL (0.0-0.7); #Monocytes 0.7 thou/uL (0.11-0.59); #Neutrophils 4.7 thou/uL (1.40-6.50); %Basophils 0.6 % (0.0-1.0); %Eosinophils 2.9 % (0.0-10.0); %Monocytes 9.1 % (0.0-10.0); %Neutrophils 61.4 % (42.0-75.0); Hemoglobin 13.2 g/dL (12.0-16.0); Mean Corpuscular HGB CONC 33.3 g/dL (32.0-36.0); Mean Corpuscular Hemoglobin 30.8 pg (27.0-31.0); Mean Corpuscular Volume 92.5 fL (78.0-98.0); Mean Platelet Volume 7.3 fL (7.4-10.4); Platelet Count 297 thou/uL (130-400); RBC Distribution Width 12.1 % (11.5-14.5); Red Blood Cell (RBC) Count 4.29 mill/uL (4.20-5.40); White Blood Cell (WBC) Count 7.6 thou/uL (4.8-10.8)
[2020-11-10 05:27] LABS: Anion Gap 12 mmol/L (10-20); BUN (Urea Nitrogen) 13 mg/dL (9.8-20.1); Calc. Creatinine Clearance 170 mL/min (70-130); Calcium 9.7 mg/dL (7.8-10.44); Carbon Dioxide 25 mmol/L (22-29); Cardiac Risk 2.5 (Less than 4.5); Chloride 107 mmol/L (98-107); Cholesterol 158 mg/dl (< 200 Desired); Glucose 96 mg/dL (70-105); HDL Cholesterol 62 mg/dL (>60 Neg Risk); LDL Cholesterol, Calculated 86 mg/dL; Potassium 3.9 mmol/L (3.5-5.1); Sodium 140 mmol/L (136-145); Triglycerides 51 mg/dL (Less than 150)
[2020-11-10 05:32] LABS: Troponin I Less than 0.010 ng/mL (< 0.028)
[2020-11-10] MEDS ORDERED: NIFEdipine XL 30 MG TAB ONE (08:51)
[2020-11-10] MEDS ORDERED: Enoxaparin Sodium 40 MG/0.4 ML SYRINGE ONE (08:51)
[2020-11-10] MEDS ORDERED: Aspirin 81 mg Enteric Coated Tablet ONE (08:52)
[2020-11-10] MEDS ORDERED: Aspirin 81 mg Enteric Coated Tablet PO SCH (09:00)
[2020-11-10] MEDS ORDERED: Pantoprazole 40 MG GRANULES PACKET PO SCH (09:00)
[2020-11-10] MEDS ORDERED: Enoxaparin Sodium 40 MG/0.4 ML SYRINGE SC SCH (09:00)
[2020-11-10] MEDS ORDERED: NIFEdipine XL 60 MG TAB PO SCH (09:00)
[2020-11-10] MEDS ORDERED: Atorvastatin Calcium 40 MG TAB PO SCH (09:00)
[2020-11-10 09:06] VITALS: BP 123/82
== END 2020-11-10 13:54 | disposition home or self-care (01) ==
LOC: ERS 18:06 → ERHOLD 21:44
PROVIDERS: ADMIT Emergency Medicine; ATTEND Emergency Medicine
DX: I16.0 Hypertensive urgency (principal); R07.89 Other chest pain; R51.9 Headache, unspecified; I69.398 Other sequelae of cerebral infarction; R20.9 Unspecified disturbances of skin sensation; I10 Essential (primary) hypertension; E78.5 Hyperlipidemia, unspecified; K21.9 Gastro-esophageal reflux disease without esophagitis; G62.9 Polyneuropathy, unspecified; E66.9 Obesity, unspecified; Z68.43 Body mass index [BMI] 50.0-59.9, adult; Z79.82 Long term (current) use of aspirin; Z79.899 Other long term (current) drug therapy; Z88.2 Allergy status to sulfonamides; Z88.3 Allergy status to other anti-infective agents; Z91.010 Allergy to peanuts; Z91.013 Allergy to seafood; Z91.018 Allergy to other foods; Z20.822 Contact with and (suspected) exposure to COVID-19
CPT/HCPCS: 36415; 71045; 80048; 80053; 80061; 82550; 83036; 84484; 85025; 93005; 96372; G0378; J1650; U0002; U0005

== ENCOUNTER 2020-11-29 20:21 | Emergency (ER) | payer OTHER ==
[2020-11-29 20:48] LABS: #Eosinphils 0.3 thou/uL (0.0-0.7); #Lymphocytes 2.3 thou/uL (1.20-3.40); #Monocytes 0.7 thou/uL (0.11-0.59); #Neutrophils 7.2 thou/uL (1.40-6.50); %Basophils 0.4 % (0.0-1.0); %Eosinophils 3.1 % (0.0-10.0); %Lymphocytes 21.8 % (21.0-51.0); %Neutrophils 67.8 % (42.0-75.0); Hemoglobin 12.9 g/dL (12.0-16.0); Mean Corpuscular HGB CONC 32.7 g/dL (32.0-36.0); Mean Corpuscular Hemoglobin 30.7 pg (27.0-31.0); Mean Corpuscular Volume 93.7 fL (78.0-98.0); Mean Platelet Volume 7.1 fL (7.4-10.4); Platelet Count 319 thou/uL (130-400); RBC Distribution Width 11.9 % (11.5-14.5); Red Blood Cell (RBC) Count 4.21 mill/uL (4.20-5.40); White Blood Cell (WBC) Count 10.6 thou/uL (4.8-10.8)
[2020-11-29 21:11] LABS: ALT (SGPT) Less than 7 U/L (8-55); AST (SGOT) 12 U/L (5-34); Albumin 4.2 g/dL (3.5-5.0); Alkaline Phosphatase 108 U/L (40-110); Anion Gap 11 mmol/L (10-20); BUN (Urea Nitrogen) 12 mg/dL (9.8-20.1); Bilirubin, Total 0.4 mg/dL (0.2-1.2); Calc. Creatinine Clearance 0 mL/min (70-130); Calcium 9.6 mg/dL (7.8-10.44); Carbon Dioxide 30 mmol/L (22-29); Chloride 105 mmol/L (98-107); Globulin 2.9 g/dL (2.4-3.5); Glucose 93 mg/dL (70-105); Potassium 3.5 mmol/L (3.5-5.1); Protein, Total 7.1 g/dL (6.0-8.3); Sodium 142 mmol/L (136-145)
[2020-11-29] MEDS ORDERED: Acetaminophen 500 MG TAB ONE (22:42)
[2020-11-30] MEDS ORDERED: Metoclopramide HCl 10 MG/2 ML VIAL ONE (00:13)
[2020-11-30] MEDS ORDERED: diphenhydrAMINE 25 MG CAP ONE (00:13)
[2020-11-30] MEDS ORDERED: diphenhydrAMINE 50 MG/ML VIAL ONE (00:14)
[2020-11-30 06:18] LABS: Troponin I Less than 0.010 ng/mL (< 0.028)
== END 2020-11-30 02:30 | disposition home or self-care (01) ==
LOC: ERS 20:21
DX: I10 Essential (primary) hypertension (principal); Z79.82 Long term (current) use of aspirin; Z79.899 Other long term (current) drug therapy; Z86.73 Personal history of transient ischemic attack (TIA), and cerebral infarction without residual deficits
CPT/HCPCS: 36415; 71045; 80053; 84484; 85025; 93005; 94760; 96365; 96375; J1200; J2765; Q0163

== ENCOUNTER 2020-12-24 15:18 | Emergency (ER) | payer OTHER ==
[2020-12-24 16:19] LABS: #Eosinphils 0.2 thou/uL (0.0-0.7); #Monocytes 0.5 thou/uL (0.11-0.59); #Neutrophils 5.5 thou/uL (1.40-6.50); %Basophils 0.6 % (0.0-1.0); %Eosinophils 2.2 % (0.0-10.0); %Lymphocytes 24.5 % (21.0-51.0); %Monocytes 5.7 % (0.0-10.0); Hemoglobin 13.8 g/dL (12.0-16.0); Mean Corpuscular HGB CONC 34.1 g/dL (32.0-36.0); Mean Corpuscular Hemoglobin 31.2 pg (27.0-31.0); Mean Corpuscular Volume 91.6 fL (78.0-98.0); Mean Platelet Volume 7.1 fL (7.4-10.4); Platelet Count 297 thou/uL (130-400); RBC Distribution Width 12.1 % (11.5-14.5); Red Blood Cell (RBC) Count 4.41 mill/uL (4.20-5.40); White Blood Cell (WBC) Count 8.2 thou/uL (4.8-10.8)
[2020-12-24 16:43] LABS: ALT (SGPT) 9 U/L (8-55); AST (SGOT) 13 U/L (5-34); Albumin 4.3 g/dL (3.5-5.0); Alkaline Phosphatase 102 U/L (40-110); Anion Gap 11 mmol/L (10-20); BUN (Urea Nitrogen) 12 mg/dL (9.8-20.1); Bilirubin, Total 0.5 mg/dL (0.2-1.2); Calc. Creatinine Clearance 0 mL/min (70-130); Calcium 9.9 mg/dL (7.8-10.44); Carbon Dioxide 29 mmol/L (22-29); Chloride 105 mmol/L (98-107); Globulin 2.7 g/dL (2.4-3.5); Glucose 94 mg/dL (70-105); Lipase 22 U/L (8-78); Potassium 3.9 mmol/L (3.5-5.1); Sodium 141 mmol/L (136-145)
[2020-12-24] MEDS ORDERED: NIFEdipine 10 MG CAP PO SCH (17:15)
[2020-12-24 17:34] LABS: Bilirubin Negative (Negative); Blood, Urine Negative (Negative); Clarity Clear (Clear); Glucose, Urine (Dipstick) Normal (Negative); Ketone, Urine Trace mg/dL (Negative); Leukocyte Negative Leu/uL (Negative); Nitrite Negative (Negative); Protein, Urine (Dipstick) Negative (Neg-Trace); Specific Gravity, Urine 1.009 (1.002-1.036); Urobilinogen Normal mg/dL (Less than 2); pH, Urine 7.5 (5.0-9.0)
== END 2020-12-24 17:50 | disposition home or self-care (01) ==
LOC: ERS 15:18
DX: I10 Essential (primary) hypertension (principal); Z86.73 Personal history of transient ischemic attack (TIA), and cerebral infarction without residual deficits; Z79.82 Long term (current) use of aspirin; Z79.899 Other long term (current) drug therapy
CPT/HCPCS: 36415; 71045; 80053; 81003; 83690; 84484; 85025; 93005

== ENCOUNTER 2021-05-04 20:23 | Observation (INO) | payer OTHER ==
[2021-05-04] MEDS ORDERED: NIFEdipine XL 30 MG TAB ONE (22:38)
[2021-05-05] MEDS ORDERED: hydrALAZINE 20 MG/ML VIAL ONE (00:09)
[2021-05-05 01:46] LABS: #Eosinphils 0.2 thou/uL (0.0-0.7); #Lymphocytes 2.1 thou/uL (1.20-3.40); #Monocytes 0.5 thou/uL (0.11-0.59); #Neutrophils 5.1 thou/uL (1.40-6.50); %Basophils 0.4 % (0.0-1.0); %Eosinophils 2.9 % (0.0-10.0); %Monocytes 6.3 % (0.0-10.0); %Neutrophils 64.4 % (42.0-75.0); Hemoglobin 14.1 g/dL (12.0-16.0); Mean Corpuscular HGB CONC 33.4 g/dL (32.0-36.0); Mean Corpuscular Hemoglobin 32.3 pg (27.0-31.0); Mean Corpuscular Volume 96.7 fL (78.0-98.0); Mean Platelet Volume 7.4 fL (7.4-10.4); Platelet Count 251 thou/uL (130-400); RBC Distribution Width 12.4 % (11.5-14.5); Red Blood Cell (RBC) Count 4.37 mill/uL (4.20-5.40); White Blood Cell (WBC) Count 7.9 thou/uL (4.8-10.8)
[2021-05-05 01:55] LABS: SARS-CoV-2 NAA Rapid Test Not Detected (NotDetected)
[2021-05-05 02:06] LABS: ALT (SGPT) 9 U/L (8-55); AST (SGOT) 15 U/L (5-34); Albumin 3.8 g/dL (3.5-5.0); Alkaline Phosphatase 94 U/L (40-110); Anion Gap 12 mmol/L (10-20); BUN (Urea Nitrogen) 12 mg/dL (9.8-20.1); Bilirubin, Total 0.5 mg/dL (0.2-1.2); Calc. Creatinine Clearance 0 mL/min (70-130); Calcium 9.5 mg/dL (7.8-10.44); Carbon Dioxide 29 mmol/L (22-29); Chloride 106 mmol/L (98-107); Glucose 109 mg/dL (70-105); Potassium 3.7 mmol/L (3.5-5.1); Protein, Total 6.8 g/dL (6.0-8.3); Sodium 143 mmol/L (136-145)
[2021-05-05] MEDS ORDERED: Ondansetron PF 4 MG/2 ML Vial ONE (02:18)
[2021-05-05 02:22] LABS: Bilirubin Negative (Negative); Blood, Urine Negative (Negative); Clarity Clear (Clear); Glucose, Urine (Dipstick) Normal (Negative); Ketone, Urine Negative (Negative); Leukocyte Negative Leu/uL (Negative); Nitrite Negative (Negative); Protein, Urine (Dipstick) Negative (Neg-Trace); Specific Gravity, Urine 1.011 (1.002-1.036); Urobilinogen Normal mg/dL (Less than 2); pH, Urine 6.5 (5.0-9.0)
[2021-05-05] MEDS ORDERED: Acetaminophen 325 MG TAB PO PRN (03:15)
[2021-05-05] MEDS ORDERED: Ondansetron PF 4 MG/2 ML Vial IVP PRN (03:15)
[2021-05-05] MEDS ORDERED: Ondansetron ODT 4 MG TAB SL PRN (03:15)
[2021-05-05] MEDS ORDERED: Labetalol HCl 100 MG/20 ML VIAL SLOW IVP PRN (03:31)
[2021-05-05] MEDS ORDERED: hydrALAZINE 20 MG/ML VIAL SLOW IVP PRN (03:31)
[2021-05-05] MEDS ORDERED: Senokot S 8.6-50 MG TAB PO PRN (03:33)
[2021-05-05 04:16] VITALS: BMI 59.3
[2021-05-05 05:20] LABS: #Eosinphils 0.1 thou/uL (0.0-0.7); #Lymphocytes 1.3 thou/uL (1.20-3.40); #Monocytes 0.6 thou/uL (0.11-0.59); #Neutrophils 5.9 thou/uL (1.40-6.50); %Basophils 0.2 % (0.0-1.0); %Eosinophils 1.5 % (0.0-10.0); %Lymphocytes 15.7 % (21.0-51.0); %Monocytes 7.9 % (0.0-10.0); %Neutrophils 74.8 % (42.0-75.0); Hemoglobin 13.3 g/dL (12.0-16.0); Mean Corpuscular HGB CONC 33.7 g/dL (32.0-36.0); Mean Corpuscular Hemoglobin 32.5 pg (27.0-31.0); Mean Corpuscular Volume 96.4 fL (78.0-98.0); Mean Platelet Volume 7.3 fL (7.4-10.4); Platelet Count 247 thou/uL (130-400); RBC Distribution Width 12.4 % (11.5-14.5); Red Blood Cell (RBC) Count 4.08 mill/uL (4.20-5.40); White Blood Cell (WBC) Count 7.9 thou/uL (4.8-10.8)
[2021-05-05 05:46] LABS: Anion Gap 11 mmol/L (10-20); BUN (Urea Nitrogen) 11 mg/dL (9.8-20.1); Calc. Creatinine Clearance 189 mL/min (70-130); Calcium 9.2 mg/dL (7.8-10.44); Carbon Dioxide 29 mmol/L (22-29); Chloride 106 mmol/L (98-107); Cholesterol 171 mg/dl (< 200 Desired); Glucose 104 mg/dL (70-105); HDL Cholesterol 57 mg/dL (>60 Neg Risk); LDL Cholesterol, Calculated 104 mg/dL; Potassium 3.5 mmol/L (3.5-5.1); Sodium 142 mmol/L (136-145); Triglycerides 52 mg/dL (Less than 150)
[2021-05-05] MEDS ORDERED: Carvedilol 6.25 MG TAB PO SCH (08:00)
[2021-05-05] MEDS ORDERED: Pantoprazole 40 MG GRANULES PACKET PO SCH (09:00)
[2021-05-05] MEDS ORDERED: NIFEdipine XL 60 MG TAB PO SCH (09:00)
[2021-05-05] MEDS ORDERED: Aspirin 81 mg Enteric Coated Tablet PO SCH (09:00)
[2021-05-05 11:34] VITALS: BP 147/75; TEMP 98.1
[2021-05-05] MEDS ORDERED: Atorvastatin Calcium 40 MG TAB PO SCH (21:00)
[2021-05-08] MEDS ORDERED: FLU VACC QS2021-22(6MOS UP)/PF 60 MCG/0.5 ML SYRINGE IM ONE (09:00)
== END 2021-05-05 16:01 | disposition home or self-care (01) ==
LOC: ERS 20:23 → 2SW 05-05 02:55
PROVIDERS: ADMIT Student in an Organized Health Care Education/Training Program; ATTEND Internal Medicine
DX: I16.0 Hypertensive urgency (principal); I11.9 Hypertensive heart disease without heart failure; E78.5 Hyperlipidemia, unspecified; K21.9 Gastro-esophageal reflux disease without esophagitis; G47.33 Obstructive sleep apnea (adult) (pediatric); R73.9 Hyperglycemia, unspecified; G31.9 Degenerative disease of nervous system, unspecified; E66.01 Morbid (severe) obesity due to excess calories; Z68.43 Body mass index [BMI] 50.0-59.9, adult; Z86.73 Personal history of transient ischemic attack (TIA), and cerebral infarction without residual deficits; Z79.82 Long term (current) use of aspirin; Z79.899 Other long term (current) drug therapy; Z88.2 Allergy status to sulfonamides; Z88.3 Allergy status to other anti-infective agents; Z91.010 Allergy to peanuts; Z91.013 Allergy to seafood; Z91.018 Allergy to other foods; Z98.84 Bariatric surgery status; Z20.822 Contact with and (suspected) exposure to COVID-19
CPT/HCPCS: 36415; 70450; 71045; 80053; 80061; 81003; 84484; 85025; 93005; 96374; 96375; 96376; G0378; J0360; J2405; U0002

== ENCOUNTER 2021-08-12 15:58 | Observation (INO) | payer OTHER ==
[2021-08-12 16:52] LABS: #Eosinphils 0.2 thou/uL (0.0-0.7); #Lymphocytes 1.5 thou/uL (1.20-3.40); #Monocytes 0.5 thou/uL (0.11-0.59); #Neutrophils 3.9 thou/uL (1.40-6.50); %Basophils 0.3 % (0.0-1.0); %Eosinophils 2.5 % (0.0-10.0); %Lymphocytes 24.7 % (21.0-51.0); %Monocytes 8.2 % (0.0-10.0); %Neutrophils 64.4 % (42.0-75.0); Hemoglobin 13.7 g/dL (12.0-16.0); Mean Corpuscular HGB CONC 31.4 g/dL (32.0-36.0); Mean Corpuscular Hemoglobin 30.8 pg (27.0-31.0); Mean Corpuscular Volume 97.9 fL (78.0-98.0); Mean Platelet Volume 7.1 fL (7.4-10.4); Platelet Count 322 thou/uL (130-400); Red Blood Cell (RBC) Count 4.45 mill/uL (4.20-5.40); White Blood Cell (WBC) Count 6.1 thou/uL (4.8-10.8)
[2021-08-12 16:55] LABS: BHCG - Serum Negative (NEGATIVE); Pregs Control Background? CLEAR/WHITE (CLR/WHITE); Pregs Control Bar Appear? YES (CONTROL BAR)
[2021-08-12 17:09] LABS: Bilirubin Negative (Negative); Blood, Urine Negative (Negative); Clarity Clear (Clear); Glucose, Urine (Dipstick) Normal (Negative); Ketone, Urine Negative (Negative); Leukocyte Negative Leu/uL (Negative); Nitrite Negative (Negative); Protein, Urine (Dipstick) 20 mg/dL (Neg-Trace); Specific Gravity, Urine 1.019 (1.002-1.036); Urobilinogen Normal mg/dL (Less than 2); pH, Urine 5.5 (5.0-9.0)
[2021-08-12 17:12] LABS: ALT (SGPT) 9 U/L (8-55); AST (SGOT) 13 U/L (5-34); Albumin 3.9 g/dL (3.5-5.0); Alkaline Phosphatase 98 U/L (40-110); Anion Gap 13 mmol/L (10-20); BUN (Urea Nitrogen) 11 mg/dL (9.8-20.1); Bilirubin, Total 0.5 mg/dL (0.2-1.2); CK (CPK) 72 U/L (29-168); Calc. Creatinine Clearance 0 mL/min (70-130); Calcium 9.3 mg/dL (7.8-10.44); Carbon Dioxide 28 mmol/L (22-29); Chloride 105 mmol/L (98-107); Globulin 3.1 g/dL (2.4-3.5); Glucose 96 mg/dL (70-105); Potassium 3.5 mmol/L (3.5-5.1); Sodium 142 mmol/L (136-145)
[2021-08-12] MEDS ORDERED: Amlodipine 5 MG TAB ONE (17:28)
[2021-08-12] MEDS ORDERED: hydrALAZINE 20 MG/ML VIAL ONE ×2 (19:02→19:52)
[2021-08-12] MEDS ORDERED: Metoclopramide HCl 10 MG/2 ML VIAL ONE (19:26)
[2021-08-12] MEDS ORDERED: Ketorolac Tromethamine 30 MG/ML VIAL ONE (19:26)
[2021-08-12 21:45] LABS: Troponin I 0.012 ng/mL (< 0.028)
[2021-08-12] MEDS ORDERED: Acetaminophen 500 MG TAB ONE (21:58)
[2021-08-12] MEDS ORDERED: Nitroglycerin 2% Ointment 1 INCH/1 GM Packet ONE (21:58)
[2021-08-12] MEDS ORDERED: Senokot S 8.6-50 MG TAB PO PRN (21:59)
[2021-08-12] MEDS ORDERED: NIFEdipine XL 30 MG TAB PO SCH (22:00)
[2021-08-12] MEDS ORDERED: Labetalol HCl 100 MG/20 ML VIAL SLOW IVP PRN (22:01)
[2021-08-12] MEDS ORDERED: Dextrose 5% in Water 1,000 ML IV PRN (22:02)
[2021-08-12] MEDS ORDERED: Insulin Regular 300 UNITS/3 ML VIAL SC PRN (22:02)
[2021-08-12] MEDS ORDERED: Dextrose 50% Abboject 50 ML SYRINGE SLOW IVP PRN (22:02)
[2021-08-12] MEDS ORDERED: HumaLOG 300 UNITS/3 ML VIAL SC PRN (22:02)
[2021-08-13 01:00] VITALS: BMI 60.4
[2021-08-13 01:51] LABS: Troponin I Less than 0.010 ng/mL (< 0.028)
[2021-08-13 05:09] LABS: #Eosinphils 0.1 thou/uL (0.0-0.7); #Lymphocytes 1.6 thou/uL (1.20-3.40); #Monocytes 0.8 thou/uL (0.11-0.59); #Neutrophils 5.6 thou/uL (1.40-6.50); %Basophils 0.5 % (0.0-1.0); %Eosinophils 1.4 % (0.0-10.0); %Lymphocytes 19.9 % (21.0-51.0); %Monocytes 9.8 % (0.0-10.0); %Neutrophils 68.4 % (42.0-75.0); Hemoglobin 12.3 g/dL (12.0-16.0); Mean Corpuscular HGB CONC 31.7 g/dL (32.0-36.0); Mean Corpuscular Hemoglobin 30.9 pg (27.0-31.0); Mean Corpuscular Volume 97.5 fL (78.0-98.0); Mean Platelet Volume 6.8 fL (7.4-10.4); Platelet Count 336 thou/uL (130-400); Red Blood Cell (RBC) Count 3.97 mill/uL (4.20-5.40); White Blood Cell (WBC) Count 8.2 thou/uL (4.8-10.8)
[2021-08-13 05:26] LABS: ALT (SGPT) 9 U/L (8-55); AST (SGOT) 11 U/L (5-34); Albumin 3.8 g/dL (3.5-5.0); Alkaline Phosphatase 93 U/L (40-110); Anion Gap 12 mmol/L (10-20); BUN (Urea Nitrogen) 12 mg/dL (9.8-20.1); Bilirubin, Total 0.4 mg/dL (0.2-1.2); Calc. Creatinine Clearance 174 mL/min (70-130); Calcium 9.1 mg/dL (7.8-10.44); Carbon Dioxide 27 mmol/L (22-29); Chloride 106 mmol/L (98-107); Globulin 2.7 g/dL (2.4-3.5); Glucose 120 mg/dL (70-105); Potassium 3.5 mmol/L (3.5-5.1); Protein, Total 6.5 g/dL (6.0-8.3); Sodium 141 mmol/L (136-145)
[2021-08-13] MEDS: NIFEdipine XL 60 MG TAB PO SCH (08:14)
[2021-08-13] MEDS: hydrALAZINE 20 MG/ML VIAL SLOW IVP PRN ×2 (08:15→17:47)
[2021-08-13] MEDS: Acetaminophen 325 MG TAB PO PRN ×3 (08:15→20:43)
[2021-08-13] MEDS: Carvedilol 6.25 MG TAB PO SCH ×2 (08:15→16:13)
[2021-08-13] MEDS: Enoxaparin Sodium 40 MG/0.4 ML SYRINGE SC SCH (08:16)
[2021-08-13 16:11] LABS: SARS-CoV-2 PCR by NAA Not Detected (NotDetected)
[2021-08-13] MEDS ORDERED: hydrALAZINE 20 MG/ML VIAL SLOW IVP PRN (19:08)
[2021-08-13] MEDS ORDERED: Atorvastatin Calcium 40 MG TAB PO SCH (21:00)
[2021-08-13] MEDS ORDERED: NIFEdipine XL 30 MG TAB PO SCH (21:00)
[2021-08-14 07:19] VITALS: TEMP 98.2
[2021-08-14] MEDS: Acetaminophen 325 MG TAB PO PRN (07:26)
[2021-08-14] MEDS: NIFEdipine XL 60 MG TAB PO SCH (07:59)
[2021-08-14] MEDS: Carvedilol 6.25 MG TAB PO SCH (07:59)
[2021-08-14] MEDS: Enoxaparin Sodium 40 MG/0.4 ML SYRINGE SC SCH (07:59)
[2021-08-14] MEDS ORDERED: Aspirin 81 mg Enteric Coated Tablet PO SCH (09:00)
[2021-08-14 09:54] VITALS: BP 145/83
== END 2021-08-14 11:50 | disposition home or self-care (01) ==
LOC: ERS 15:58 → 2SW 21:03
PROVIDERS: ADMIT Internal Medicine; ATTEND Internal Medicine
DX: I16.0 Hypertensive urgency (principal); R42 Dizziness and giddiness; I11.9 Hypertensive heart disease without heart failure; G47.33 Obstructive sleep apnea (adult) (pediatric); E78.5 Hyperlipidemia, unspecified; E11.9 Type 2 diabetes mellitus without complications; I08.8 Other rheumatic multiple valve diseases; Z79.82 Long term (current) use of aspirin; Z79.899 Other long term (current) drug therapy; Z88.2 Allergy status to sulfonamides; Z88.3 Allergy status to other anti-infective agents; Z91.010 Allergy to peanuts; Z91.013 Allergy to seafood; Z91.018 Allergy to other foods; Z98.84 Bariatric surgery status; Z20.822 Contact with and (suspected) exposure to COVID-19
CPT/HCPCS: 36415; 36416; 70450; 80053; 81003; 82550; 83880; 84443; 84484; 84703; 85025; 93005; 93306; 93880; 96372; 96374; 96375; 96376; G0378; J0360; J1650; J1885; J2765; U0003; U0005

== ENCOUNTER 2021-10-29 20:17 | Inpatient (IN) | payer OTHER ==
[2021-10-29] MEDS ORDERED: Labetalol HCl 100 MG/20 ML VIAL ONE (20:39)
[2021-10-29 20:43] LABS: #Eosinphils 0.3 thou/uL (0.0-0.7); #Lymphocytes 2.1 thou/uL (1.20-3.40); #Monocytes 0.5 thou/uL (0.11-0.59); #Neutrophils 5.6 thou/uL (1.40-6.50); %Basophils 0.2 % (0.0-1.0); %Lymphocytes 24.3 % (21.0-51.0); %Monocytes 5.8 % (0.0-10.0); %Neutrophils 66.6 % (42.0-75.0); Hemoglobin 13.9 g/dL (12.0-16.0); Mean Corpuscular HGB CONC 32.9 g/dL (32.0-36.0); Mean Corpuscular Hemoglobin 31.1 pg (27.0-31.0); Mean Corpuscular Volume 94.5 fL (78.0-98.0); Platelet Count 321 thou/uL (130-400); RBC Distribution Width 11.8 % (11.5-14.5); Red Blood Cell (RBC) Count 4.48 mill/uL (4.20-5.40); White Blood Cell (WBC) Count 8.4 thou/uL (4.8-10.8)
[2021-10-29 21:09] LABS: ALT (SGPT) 11 U/L (8-55); AST (SGOT) 13 U/L (5-34); Alkaline Phosphatase 108 U/L (40-110); Anion Gap 14 mmol/L (10-20); BUN (Urea Nitrogen) 12 mg/dL (9.8-20.1); Bilirubin, Total 0.4 mg/dL (0.2-1.2); Calc. Creatinine Clearance 0 mL/min (70-130); Calcium 9.7 mg/dL (7.8-10.44); Carbon Dioxide 26 mmol/L (22-29); Chloride 103 mmol/L (98-107); Globulin 3.6 g/dL (2.4-3.5); Glucose 109 mg/dL (70-105); Lipase 25 U/L (8-78); Magnesium 2.1 mg/dL (1.6-2.6); Potassium 3.6 mmol/L (3.5-5.1); Protein, Total 7.6 g/dL (6.0-8.3); Sodium 139 mmol/L (136-145)
[2021-10-29 21:50] LABS: Bilirubin Negative (Negative); Blood, Urine Negative (Negative); Clarity Clear (Clear); Glucose, Urine (Dipstick) Normal (Negative); Ketone, Urine Negative (Negative); Leukocyte Negative Leu/uL (Negative); Nitrite Negative (Negative); Protein, Urine (Dipstick) Negative (Neg-Trace); Specific Gravity, Urine 1.008 (1.002-1.036); Urobilinogen Normal mg/dL (Less than 2); pH, Urine 7.5 (5.0-9.0)
[2021-10-29] MEDS ORDERED: Acetaminophen 500 MG TAB ONE (22:05)
[2021-10-29] MEDS ORDERED: HYDROcodone/Acetaminophen 7.5/325 mg Tablet PO PRN (22:21)
[2021-10-29] MEDS ORDERED: Ondansetron PF 4 MG/2 ML Vial IVP PRN (22:21)
[2021-10-29] MEDS ORDERED: Zolpidem Tartrate 5 MG TAB PO PRN (22:21)
[2021-10-29] MEDS ORDERED: Bisacodyl 10 MG SUPP PR PRN (22:21)
[2021-10-29] MEDS ORDERED: Labetalol HCl 100 MG/20 ML VIAL SLOW IVP PRN (22:21)
[2021-10-29] MEDS ORDERED: Acetaminophen 325 MG TAB PO PRN (22:21)
[2021-10-29] MEDS ORDERED: Lorazepam 2 MG/ML VIAL SLOW IVP PRN (22:34)
[2021-10-29] MEDS ORDERED: Carvedilol 6.25 MG TAB PO SCH (23:00)
[2021-10-29 23:54] VITALS: BMI 60.9
[2021-10-30] MEDS: NIFEdipine XL 60 MG TAB PO SCH ×2 (00:12→09:36)
[2021-10-30] MEDS: Sodium Chloride 0.9% 1,000 ML IV SCH ×2 (00:14→09:46)
[2021-10-30 00:40] LABS: Troponin I Less than 0.010 ng/mL (< 0.028)
[2021-10-30 04:27] LABS: #Eosinphils 0.2 thou/uL (0.0-0.7); #Lymphocytes 2.2 thou/uL (1.20-3.40); #Monocytes 0.6 thou/uL (0.11-0.59); #Neutrophils 5.3 thou/uL (1.40-6.50); %Eosinophils 2.6 % (0.0-10.0); %Lymphocytes 26.2 % (21.0-51.0); %Monocytes 7.2 % (0.0-10.0); Hemoglobin 11.9 g/dL (12.0-16.0); Mean Corpuscular HGB CONC 32.6 g/dL (32.0-36.0); Mean Corpuscular Hemoglobin 30.5 pg (27.0-31.0); Mean Corpuscular Volume 93.6 fL (78.0-98.0); Mean Platelet Volume 6.8 fL (7.4-10.4); Platelet Count 306 thou/uL (130-400); RBC Distribution Width 11.7 % (11.5-14.5); Red Blood Cell (RBC) Count 3.89 mill/uL (4.20-5.40); White Blood Cell (WBC) Count 8.3 thou/uL (4.8-10.8)
[2021-10-30 04:50] LABS: ALT (SGPT) Less than 7 U/L (8-55); AST (SGOT) 10 U/L (5-34); Albumin 3.4 g/dL (3.5-5.0); Alkaline Phosphatase 89 U/L (40-110); Anion Gap 10 mmol/L (10-20); BUN (Urea Nitrogen) 15 mg/dL (9.8-20.1); Bilirubin, Total 0.3 mg/dL (0.2-1.2); Calc. Creatinine Clearance 146 mL/min (70-130); Calcium 9.3 mg/dL (7.8-10.44); Carbon Dioxide 29 mmol/L (22-29); Cardiac Risk 3.7 (Less than 4.5); Chloride 107 mmol/L (98-107); Cholesterol 174 mg/dl (< 200 Desired); Globulin 2.9 g/dL (2.4-3.5); Glucose 116 mg/dL (70-105); HDL Cholesterol 47 mg/dL (>60 Neg Risk); LDL Cholesterol, Calculated 112 mg/dL; Potassium 3.4 mmol/L (3.5-5.1); Protein, Total 6.3 g/dL (6.0-8.3); Sodium 143 mmol/L (136-145); Triglycerides 74 mg/dL (Less than 150)
[2021-10-30 04:59] LABS: Troponin I Less than 0.010 ng/mL (< 0.028)
[2021-10-30] MEDS ORDERED: ALPRAZolam 0.5 MG TAB PO PRN (07:54)
[2021-10-30] MEDS ORDERED: Potassium Chloride 20 MEQ TAB PO SCH (08:00)
[2021-10-30] MEDS: Aspirin 81 mg Enteric Coated Tablet PO SCH (09:35)
[2021-10-30] MEDS: Enoxaparin Sodium 40 MG/0.4 ML SYRINGE SC SCH (09:36)
[2021-10-30] MEDS: Carvedilol 6.25 MG TAB PO SCH ×2 (09:36→20:57)
[2021-10-30] MEDS: Atorvastatin Calcium 40 MG TAB PO SCH (20:57)
[2021-10-31 08:07] LABS: Albumin 3.6 g/dL (3.5-5.0); Anion Gap 10 mmol/L (10-20); BUN (Urea Nitrogen) 14 mg/dL (9.8-20.1); BUN/Creatinine Ratio 14.74; Calc. Creatinine Clearance 173 mL/min (70-130); Calcium 9.8 mg/dL (7.8-10.44); Carbon Dioxide 29 mmol/L (22-29); Chloride 107 mmol/L (98-107); Glucose 100 mg/dL (70-105); Phosphorus 3.5 mg/dL (2.3-4.7); Potassium 3.7 mmol/L (3.5-5.1); Sodium 142 mmol/L (136-145)
[2021-10-31] MEDS: Labetalol HCl 100 MG TAB PO SCH ×2 (10:21→21:35)
[2021-10-31] MEDS: Enoxaparin Sodium 40 MG/0.4 ML SYRINGE SC SCH (10:21)
[2021-10-31] MEDS: Aspirin 81 mg Enteric Coated Tablet PO SCH (10:21)
[2021-10-31] MEDS: NIFEdipine XL 60 MG TAB PO SCH ×2 (10:22→21:34)
[2021-10-31] MEDS ORDERED: Docusate 100 MG CAP PO PRN (11:41)
[2021-10-31] MEDS ORDERED: Polyethylene Glycol 3350 17 GM Packet PO PRN (11:41)
[2021-10-31] MEDS ORDERED: Docusate 100 MG CAP PO SCH (11:45)
[2021-10-31] MEDS ORDERED: Polyethylene Glycol 3350 17 GM Packet PO SCH (11:45)
[2021-10-31] MEDS: Atorvastatin Calcium 40 MG TAB PO SCH (21:34)
[2021-11-01 05:32] LABS: Anion Gap 12 mmol/L (10-20); BUN (Urea Nitrogen) 11 mg/dL (9.8-20.1); Calc. Creatinine Clearance 181 mL/min (70-130); Calcium 9.4 mg/dL (7.8-10.44); Carbon Dioxide 29 mmol/L (22-29); Chloride 106 mmol/L (98-107); Glucose 93 mg/dL (70-105); Potassium 3.8 mmol/L (3.5-5.1); Sodium 143 mmol/L (136-145)
[2021-11-01] MEDS ORDERED: Bisacodyl 10 MG SUPP PR SCH (09:45)
[2021-11-01] MEDS: Aspirin 81 mg Enteric Coated Tablet PO SCH (11:29)
[2021-11-01] MEDS: Enoxaparin Sodium 40 MG/0.4 ML SYRINGE SC SCH (11:29)
[2021-11-01] MEDS: NIFEdipine XL 60 MG TAB PO SCH ×2 (11:30→21:52)
[2021-11-01] MEDS: Labetalol HCl 100 MG TAB PO SCH ×2 (11:30→21:52)
[2021-11-01] MEDS: Lisinopril 20 MG TAB PO SCH ×2 (11:30→21:53)
[2021-11-01] MEDS: Atorvastatin Calcium 40 MG TAB PO SCH (21:52)
[2021-11-02 08:54] VITALS: BP 140/75; TEMP 97.8
[2021-11-02] MEDS: Aspirin 81 mg Enteric Coated Tablet PO SCH (10:30)
[2021-11-02] MEDS: Labetalol HCl 100 MG TAB PO SCH (10:31)
[2021-11-02] MEDS: Lisinopril 20 MG TAB PO SCH (10:32)
[2021-11-02] MEDS: NIFEdipine XL 60 MG TAB PO SCH (10:32)
[2021-11-02] MEDS: Enoxaparin Sodium 40 MG/0.4 ML SYRINGE SC SCH (10:33)
[2021-11-04 10:14] LABS: Metanephrine,Plasma 12.4 pg/mL (0.0-88.0); Normetanephrine,Pl 59.4 pg/mL (0.0-244.0)
== END 2021-11-02 12:35 | disposition home or self-care (01) | DRG 65 ==
LOC: ERS 20:17 → 2NO 21:59 → OBSVTOIN 10-30 15:20
PROVIDERS: ADMIT Internal Medicine; ATTEND Internal Medicine
DX: I63.9 Cerebral infarction, unspecified (principal); R29.703 NIHSS score 3; Z20.822 Contact with and (suspected) exposure to COVID-19; I16.1 Hypertensive emergency; Z68.44 Body mass index [BMI] 60.0-69.9, adult; N17.9 Acute kidney failure, unspecified; G83.14 Monoplegia of lower limb affecting left nondominant side; I10 Essential (primary) hypertension; E78.5 Hyperlipidemia, unspecified; E66.01 Morbid (severe) obesity due to excess calories; G47.33 Obstructive sleep apnea (adult) (pediatric); K21.9 Gastro-esophageal reflux disease without esophagitis; F40.240 Claustrophobia; E86.9 Volume depletion, unspecified; K59.00 Constipation, unspecified; Z91.041 Radiographic dye allergy status; Z91.018 Allergy to other foods; Z91.010 Allergy to peanuts; Z91.013 Allergy to seafood; Z88.2 Allergy status to sulfonamides; Z88.8 Allergy status to other drugs, medicaments and biological substances; Z86.73 Personal history of transient ischemic attack (TIA), and cerebral infarction without residual deficits; Z98.890 Other specified postprocedural states; Z98.84 Bariatric surgery status; Z82.49 Family history of ischemic heart disease and other diseases of the circulatory system; Z83.3 Family history of diabetes mellitus; Z83.2 Family history of diseases of the blood and blood-forming organs and certain disorders involving the immune mechanism; Z91.14 Patient's other noncompliance with medication regimen
CPT/HCPCS: 36415; 36416; 70450; 80048; 80053; 80061; 80069; 81003; 82088; 83497; 83690; 83735; 83835; 83880; 84244; 84484; 85025; 93005; 96372; 96374; G0378; J1650; J7050; U0003; U0005

== ENCOUNTER 2022-08-30 10:39 | Outpatient (CLI) | payer OTHER | END 2022-08-30 10:40 | disposition home or self-care (01) | LOC: BICULT 10:39 | PROVIDERS: ATTEND Family Medicine | DX: N95.0 Postmenopausal bleeding (principal); D25.9 Leiomyoma of uterus, unspecified | CPT/HCPCS: 76856 ==

== ENCOUNTER 2022-09-21 02:36 | Emergency (ER) | payer OTHER ==
[2022-09-21] MEDS ORDERED: hydrALAZINE 20 MG/ML VIAL ONE (03:12)
[2022-09-21 03:33] LABS: #Eosinphils 0.2 thou/uL (0.0-0.7); #Monocytes 0.6 thou/uL (0.11-0.59); #Neutrophils 4.6 thou/uL (1.40-6.50); %Basophils 0.3 % (0.0-1.0); %Eosinophils 2.5 % (0.0-10.0); %Lymphocytes 28.4 % (21.0-51.0); %Monocytes 8.2 % (0.0-10.0); %Neutrophils 60.2 % (42.0-75.0); Hemoglobin 12.4 g/dL (12.0-16.0); Mean Corpuscular Hemoglobin 29.5 pg (27.0-31.0); Platelet Count 240 10x3/uL (130-400); RBC Distribution Width 13.7 % (11.5-14.5); Red Blood Cell (RBC) Count 4.21 mill/uL (4.20-5.40); White Blood Cell (WBC) Count 7.6 10x3/uL (4.8-10.8)
[2022-09-21 03:56] LABS: ALT (SGPT) 8 U/L (8-55); AST (SGOT) 11 U/L (5-34); Albumin 3.7 g/dL (3.5-5.0); Alkaline Phosphatase 83 U/L (40-110); Anion Gap 12 mmol/L (10-20); BUN (Urea Nitrogen) 10 mg/dL (9.8-20.1); Bilirubin, Total 0.4 mg/dL (0.2-1.2); Calc. Creatinine Clearance 0 mL/min (70-130); Calcium 9.5 mg/dL (7.8-10.44); Carbon Dioxide 28 mmol/L (22-29); Chloride 106 mmol/L (98-107); Estimated GFR 59; Globulin 2.8 g/dL (2.4-3.5); Glucose 110 mg/dL (70-105); Potassium 3.4 mmol/L (3.5-5.1); Protein, Total 6.5 g/dL (6.0-8.3); Sodium 143 mmol/L (136-145)
== END 2022-09-21 05:51 | disposition home or self-care (01) ==
LOC: ERS 02:36
DX: I10 Essential (primary) hypertension (principal); Z79.82 Long term (current) use of aspirin; Z79.899 Other long term (current) drug therapy
CPT/HCPCS: 36415; 71045; 80053; 84484; 85025; 93005; 96374; J0360